=== PATIENT | male | born 1965 | race Caucasian/White ===

== ENCOUNTER 2024-10-20 02:14 | Outpatient (CLI) | payer OTHER, SELFPAY ==
--- NOTE | 2024-10-20 | DI.RAD_ITS ---
Exam(s) XR CHEST 2V PA LATERAL EXAM: XR CHEST 2V PA LATERAL CLINICAL HISTORY: DIABETES MELLITUS II E11.9 CHEST PAIN R07.9 TECHNIQUE: 2D digital imaging was performed of the chest. Images were obtained. PA and lateral v iews were obtained. COMPARISON: No exams were available for comparison FINDINGS: MEDIASTINUM: Normal. HEART: Normal. PULMONARY VASCULATURE: Normal. LUNGS: Clear. PLEURAL SPACE: No pleural effusion or pneumothorax. BONE:Within normal limits for the patient's age. OTHER FINDINGS:Normal. IMPRESSION: No acute pulmonary findings. DATA REPOSITORY: RADIATION DOSE DELIVERED:
== END 2024-10-20 02:34 ==
LOC: DI 02:14
PROVIDERS: Visit Provider Chiropractor
DX: E11.9 Type 2 diabetes mellitus without complications (principal); R07.9 Chest pain, unspecified
CPT/HCPCS: 71046

== ENCOUNTER 2024-10-20 03:21 | Outpatient (CLI) | payer OTHER, SELFPAY ==
[2024-10-20] MEDS: Inhaler, Assist Device 1 EACH MC (08:52)
[2024-10-20] MEDS: Levalbuterol HFA 15 GM INH 4 PUFF IH (08:53)
--- NOTE | 2024-10-27 16:19 | W.PFT ---
Date of service: 10/20/24 Time of Service: 08:03 Pulmonary Function Test Result Indications: Cough Interpretation Spirometry: There is moderate airflow limitation. No bronchodilator response Impression Moderate airflow obstruction. Clinical Correlation therefore is recommended.
== END 2024-10-20 03:22 | disposition home or self-care (01) ==
LOC: RT 03:21
PROVIDERS: Visit Provider Student in an Organized Health Care Education/Training Program
DX: R05.9 Cough, unspecified (principal)
CPT/HCPCS: 94060

== ENCOUNTER 2024-12-22 11:14 | Outpatient (CLI) | payer SELFPAY ==
[2024-12-22] MEDS: Inhaler, Assist Device 1 EACH MC (15:40)
[2024-12-22] MEDS: Levalbuterol HFA 15 GM INH 4 PUFF IH (15:40)
--- NOTE | 2024-12-22 16:18 | W.PFT ---
Date of service: 12/22/24 Time of Service: 10:01 Pulmonary Function Test Result Indications: Pre-op Interpretation Spirometry: There is moderate airflow limitation. There is a significant bronchodilator response. Lung Volumes: Normal lung volumes Diffusion Capacity: Reduced diffusion Airway Pressure: Normal airways resistance Impression Moderate airflow obstruction and a reduced diffusion. Clinical Correlation therefore is recommended.
== END 2024-12-22 11:15 | disposition home or self-care (01) ==
LOC: RT 11:16
PROVIDERS: Visit Provider Student in an Organized Health Care Education/Training Program
DX: R91.1 Solitary pulmonary nodule (principal)
CPT/HCPCS: 94060; 94726; 94729

== ENCOUNTER 2025-04-09 18:16 | Inpatient (IN) | payer OTHER, SELFPAY ==
[2025-04-09] VITALS (37 sets, daily range): BP systolic 136–186; BP diastolic 62–97; PULSE 57–86; RESP 0–24; TEMP 36.3; O2SAT 89–99
--- NOTE | 2025-04-09 18:22 | DI.CT_ITS ---
Exam(s) CT THORACIC LUMBAR SPINE WO EXAM: CT THORACIC LUMBAR SPINE WO CLINICAL HISTORY: trauma. TECHNIQUE: Imaging Protocol: Axial computed tomography images with coronal and sagittal reformatted images were created and reviewed. COMPARISON: CR XR CHEST 2V PA LATERAL from 10/20/2024 FINDINGS: Bones: No fractures or dislocations are seen in the thoracic spine. Schmorl's nodes are seen in the superior endplates of T7 and T8. Age-appropriate degenerative changes are seen in the thoracic and lumbar spine. The alignment of the spine is normal including the cervicothoracic junction and the tho racolumbar junction. There is an acute depressed fracture of the superior endplate of L1. There is no involvement of the posterior elements or the posterior vertebral body. There is loss of less than 20 percent of the height of the vertebral body anteriorly. Soft tissues: Emphysematous changes are present in the lungs. There is a diffuse disc bulge at L4-L5 causing moderate to severe severe narrowing of the central spinal canal. Atherosclerotic calcification is present. IMPRESSION: 1. There is no acute fracture or subluxation seen in the thoracic spine. 2. Acute fracture of the L1 vertebral body with anterior wedging and loss of less than 20 percent of the height of the vertebral body anteriorly. There is no involvement of the posterior wall of the vertebral body or the posterior elements. There is no retropulsion. 3. The preliminary [facility] report was reviewed. RADIATION DOSE DELIVERED: 1,885.65mGy.cm Total DLP DATA REPOSITORY: All CT scans at this facility are submitted to the National Radiology Data Registry (NRDR) Dose Index Registry (DIR) with the [employer] ([employer]). RADIATION OPTIMIZATION: All CT scans at this facility use at least one of these dose optimization techniques: automated exposure control; mA and/or kV adjustment per patient size (includes targeted exams where dose is matched to clinical indication); or iterative reconstruction.
[2025-04-09] MEDS: HYDROmorphone 2 MG/ML SYR IVP ×2 (18:30→19:59)
[2025-04-09] MEDS: Ondansetron 4 MG/2 ML VIAL IVP ×2 (18:30→21:03)
--- NOTE | 2025-04-09 18:43 | DI.CT_ITS ---
Exam(s) CT HEAD CERVICAL SPINE WO EXAM: CT HEAD CERVICAL SPINE WO CLINICAL HISTORY: trauma. TECHNIQUE: Imaging Protocol: Axial computed tomography images with coronal and sagittal reformatted images were created and reviewed COMPARISON: No exams were available for comparison FINDINGS: CT Head: Ventricles and Extra axial spaces: Normal in size and morphology for the patient's age. Hemorrhage: None. Cerebral parenchyma: There is no evidence of an acute territorial infarct. There is normal patterson-white matter differentiation. No acute mass effect is present. Midline shift: None. Brainstem/Cerebellum: Normal. Calvarium: Normal. Visualized Paranasal sinuses/Mastoids: Clear. Soft Tissues: Unremarkable. CT Cervical Spine: Bones: No acute fracture or subluxation. Age-appropriate degenerative changes are seen in the cervical spine. Soft Tissues: Unremarkable. Lung Apices: Emphysematous changes are seen in the lung apices. No evidence of an apical pneumothorax is present. IMPRESSION: 1. No acute intracranial process. 2. No acute fracture or subluxation in the cervical spine. 3. The preliminary [facility] report was reviewed. RADIATION DOSE DELIVERED: 1,324.53mGy.cm Total DLP DATA REPOSITORY: All CT scans at this facility are submitted to the National Radiology Data Registry (NRDR) Dose Index Registry (DIR) with the [employer] (ACR). RADIATION OPTIMIZATION: All CT scans at this facility use at least one of these dose optimization techniques: automated exposure control; mA and/or kV adjustment per patient size (includes targeted exams where dose is matched to clinical indication); or iterative reconstruction.
--- NOTE | 2025-04-09 19:50 | DI.[facility]_ITS ---
PROCEDURE INFORMATION: Exam: CT Head Without Contrast Exam date and time: 04/09/2025 6:36 PM Age: 60 years old Clinical indication: Injury or trauma; Fall; Blunt trauma (contusions or hematomas); Consciousness not specified; Injury date: 04/09/25 TECHNIQUE: Imaging protocol: Computed tomography of the head without contrast. Radiation optimization: All CT scans at this facility use at least one of these dose optimization techniques: automated exposure control; mA and/or kV adjustment per patient size (includes targeted exams where dose is matched to clinical indication); or iterative reconstruction. COMPARISON: No relevant prior studies available. FINDINGS: Brain: Normal. No hemorrhage. Unremarkable white matter. No mass effect. Cerebral ventricles: No ventriculomegaly. Paranasal sinuses: Visualized sinuses are unremarkable. No fluid levels. Mastoid air cells: Visualized mastoid air cells are well aerated. Bones: Unremarkable. No acute fracture. Soft tissues: Unremarkable. IMPRESSION: No acute intracranial abnormality. PROCEDURE INFORMATION: Exam: CT Cervical Spine Without Contrast Exam date and time: 04/09/2025 6:36 PM Age: 60 years old Clinical indication: Injury or trauma; Fall; Blunt trauma (contusions or hematomas); Consciousness not specified; Injury date: 04/09/25 TECHNIQUE: Imaging protocol: Computed tomography of the cervical spine without contrast. Radiation optimization: All CT scans at this facility use at least one of these dose optimization techniques: automated exposure control; mA and/or kV adjustment per patient size (includes targeted exams where dose is matched to clinical indication); or iterative reconstruction. COMPARISON: CR XR CHEST 2V PA LATERAL 10/20/2024 8:25 AM FINDINGS: Bones: Normal alignment of the cervical vertebral bodies and discs. No acute fracture. Mild osteoarthritic changes identified at several levels and most pronounced at C6-C7. No evidence for spondylolysis or spondylolisthesis. No central spinal stenosis or cord compression. Mild neural foraminal narrowing identified at C6-C7 secondary to uncovertebral joint and facet joint arthropathy. Lungs: Lung apices are normal. Soft tissues: Unremarkable. IMPRESSION: No acute fracture. Dictated and Authenticated by: Maxwell Teresa MD. Orderin Jamie Laughlin MD
--- NOTE | 2025-04-09 19:57 | DI.[facility]_ITS ---
PROCEDURE INFORMATION: Exam: CT Thoracic Spine Without Contrast Exam date and time: 04/09/2025 6:42 PM Age: 60 years old Clinical indication: Injury or trauma; Fall; Blunt trauma (contusions or hematomas); Injury date: 04/09/25 TECHNIQUE: Imaging protocol: Computed tomography of the thoracic spine without contrast. Radiation optimization: All CT scans at this facility use at least one of these dose optimization techniques: automated exposure control; mA and/or kV adjustment per patient size (includes targeted exams where dose is matched to clinical indication); or iterative reconstruction. COMPARISON: CT HEAD CERVICAL SPINE WO 04/09/2025 6:36 PM FINDINGS: Bones/joints: Schmorl's node defects involving the superior endplate of T7 and T8 appear chronic and there is gross preservation of vertebral body height throughout the remainder of the thoracic spine with no acute vertebral body fractures or significant subluxations detected. Posterior elements appear intact throughout thoracic levels. T1-T2: No significant disc bulge or protrusion. No severe spinal canal stenosis. No significant neural foraminal narrowing. T2-T3: No significant disc bulge or protrusion. No severe spinal canal stenosis. No significant neural foraminal narrowing. T3-T4: No significant disc bulge or protrusion. No severe spinal canal stenosis. No significant neural foraminal narrowing. T4-T5: No significant disc bulge or protrusion. No severe spinal canal stenosis. No significant neural foraminal narrowing. T5-T6: No significant disc bulge or protrusion. No severe spinal canal stenosis. No significant neural foraminal narrowing. T6-T7: Small posterior central disc protrusion results in focal indentation of the ventral thecal sac without canal stenosis or mass effect upon the cord. T7-T8: Small posterior central disc protrusion results in focal indentation of the ventral thecal sac without canal stenosis or mass effect upon the cord. T8-T9: No significant disc bulge or protrusion. No severe spinal canal stenosis. No significant neural foraminal narrowing. T9-T10: No significant disc bulge or protrusion. No severe spinal canal stenosis. No significant neural foraminal narrowing. T10-T11: No significant disc bulge or protrusion. No severe spinal canal stenosis. No significant neural foraminal narrowing. T11-T12: No significant disc bulge or protrusion. No severe spinal canal stenosis. No significant neural foraminal narrowing. T12-L1: No significant disc bulge or protrusion. No severe spinal canal stenosis. No significant neural foraminal narrowing. Soft tissues: Unremarkable. IMPRESSION: 1. Schmorl's node defects involving the superior endplate of T7 and T8 appear chronic and there is gross preservation of vertebral body height throughout the remainder of the thoracic spine with no acute vertebral body fractures or significant subluxations detected. Posterior elements appear intact throughout thoracic levels. 2. Small posterior central disc protrusions at T6-7 and T7-8 result in focal indentation of the ventral thecal sac without canal stenosis or mass effect upon the cord. No significant disc bulges or protrusions detected at remaining thoracic levels. PROCEDURE INFORMATION: Exam: CT Lumbar Spine Without Contrast Exam date and time: 04/09/2025 6:42 PM Age: 60 years old Clinical indication: Injury or trauma; Fall; Blunt trauma (contusions or hematomas); Injury date: 04/09/25 TECHNIQUE: Imaging protocol: Computed tomography of the lumbar spine without contrast. Radiation optimization: All CT scans at this facility use at least one of these dose optimization techniques: automated exposure control; mA and/or kV adjustment per patient size (includes targeted exams where dose is matched to clinical indication); or iterative reconstruction. COMPARISON: No relevant prior studies available. FINDINGS: Bones/joints: Compression fracture deformity involving the body of L1 with concavity and collapse of the superior endplate and anterior wedging is seen associated with osseous fragmentation along the anterior margin of the superior endplate consistent with recent fracture. No associated retropulsed fragments or canal stenosis detected. There is preservation of vertebral body height throughout the remainder of the lumbar spine with no other acute lumbar fractures detected. L1-L2: No significant disc bulge or protrusion. No severe spinal canal stenosis. No significant neural foraminal narrowing. L2-L3: No significant disc bulge or protrusion. No severe spinal canal stenosis. No significant neural foraminal narrowing. L3-L4: Broad-based posterior disc bulging indents the ventral thecal sac without significant central canal stenosis. L4-L5: Posterior disc extrusion with inferior prolapse indents the ventral thecal sac and produces severe canal stenosis, AP canal dimension approximately 7 mm. L5-S1: Mild posterior disc bulging without focal protrusion. No severe spinal canal stenosis. No significant neural foraminal narrowing. Soft tissues: Unremarkable. IMPRESSION: 1. Compression fracture deformity involving the body of L1 with concavity and collapse of the superior endplate and anterior wedging is seen associated with osseous fragmentation along the anterior margin of the superior endplate consistent with recent fracture. No associated retropulsed fragments or canal stenosis detected. There is preservation of vertebral body height throughout the remainder of the lumbar spine with no other acute lumbar fractures detected. 2. Posterior disc extrusion with inferior prolapse at L4-L5 indents the ventral thecal sac and produces severe canal stenosis, AP canal dimension approximately 7 mm. Central canal is adequate at remaining lumbar levels. Dictated and Authenticated by: Akshat Mejias MD. Orderin Jamie Laughlin MD
[2025-04-09 20:32] LABS: Abs Immature Grans 0.06 10^3/uL (0.0-0.06); HCT 39.7 % (40.0-50.0); HGB 13.5 g/dL (13.5-17.5); Immature Grans % 0.7 %; MCH 33.3 pg (27.0-33.0); MCHC 34.0 % (32.0-36.0); MCV 98 fL (80-95); MPV 10.0 fL (8.0-11.0); Platelet Count 197 10^3/uL (130-400); RBC 4.05 10^6/uL (4.36-5.78); RDW 14.0 % (11.8-14.1); RDW-SD 51.2 fL; WBC 8.89 10^3/uL (4.4-10.8)
[2025-04-09 20:48] LABS: ALT 15 U/L (16-63); AST 17 U/L (15-37); Albumin 3.3 g/dL (3.4-5.0); Alkaline Phosphatase 111 U/L (46-116); Anion Gap 9.6 mmol/L (3-11); BUN 10 mg/dL (7-18); Bilirubin, Total 0.6 mg/dL (0.2-1.0); CO2 24.4 mmol/L (21.0-32.0); Calcium 8.3 mg/dL (8.5-10.1); Chloride 104 mmol/L (98-107); Estimated GFR 99.00 (mL/min/1.73m2); Glucose 205 mg/dL (74-106); Lipase 12 U/L (<78); Potassium 4.0 mmol/L (3.5-5.1); Sodium 138 mmol/L (136-145); Total Protein 6.9 g/dL (6.4-8.2)
[2025-04-09] MEDS: ACETAMINOPHEN 1,000 MG/100 ML BAG 400 MG IVPB (21:03)
[2025-04-09] MEDS: Gabapentin 300 MG CAP 900 MG PO (21:03)
--- NOTE | 2025-04-09 21:29 | W.PM.HP.N ---
Date of service: 04/09/25 Time of Service: 21:29 Assessment and Plan Assessment and plan (1) Closed compression fracture of L1 vertebra: Start date: 04/09/25 Status: Acute Assessment and plan: This is a 60-year-old gentleman with a acute compression fracture of the L1 vertebrae with fall at home. There are no signs of neurological deficits and patient will have repeat imaging of his LS spine standing as per request of neurosurgery from [facility] consulted while the patient was in the ED. They state that the patient did not require any acute interventions and he should be treated for pain with rehabilitation. The patient was admitted for follow-up imaging and rehabilitation to enable him to return home. He is a full code. 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 He has been off muscle his meds recently. This also may have been exacerbated by his fall. PT and OT have been ordered. Follow-up imaging as per neurosurgery with patient standing for weightbearing image to assess for instability. (3) Type 2 diabetes mellitus: Status: Chronic Assessment and plan: Hold outpatient medical therapy and do glucometers before meals and at bedtime with moderate sliding scale coverage. (4) GERD (gastroesophageal reflux disease): Status: Chronic Assessment and plan: Continue PPI as ordered as an outpatient with question patient be compliant as an outpatient. He is a smoker which may increase risk of reflux. (5) Depression: Status: Chronic Assessment and plan: Continue outpatient medical therapy though there is a question patient being compliant as an outpatient. (6) Hyperlipidemia: Status: Chronic Assessment and plan: Continue outpatient therapy as previously ordered though once again compliance may be an issue. History of Present Illness History of Present Illness Chief Complaint: Fall on stairs injuring back while carrying stove. Narrative: This is a 60-year-old male patient who is caring a heavy stove on some stairs when he fell very hard directly on his buttocks injuring his lower back. He does have chronic low back pain with known degenerative disc disease for which she was taking Neurontin in the past. He also is a diabetic and states he is fairly well-controlled. He does take antidepressants but has been off his meds recently and also PPI for gastroenteritis which she has not been taking recently. His hyperlipidemia was on treatment but he had been off meds for this as well. He does smoke tobacco. He presented to the ED because of his severe acute onset of pain and imaging did reveal compression fracture of the L1 vertebra with degenerative disc disease of the lower lumbar spine at L4-L5. Review of Systems Narrative: 13 point review of systems otherwise unrevealing or stable. Patient is not incontinent and does not have any loss of function of his lower extremities. PFSH All Active Problems (Updated 04/09/25 @ 23:17 by Beryl Ayala MD) Hyperlipidemia (Chronic) Depression (Chronic) GERD (gastroesophageal reflux disease) (Chronic) Type 2 diabetes mellitus (Chronic) Closed compression fracture of L1 vertebra (Acute) Spondylosis of lumbar region without myelopathy or radiculopathy (Chronic) Social History Smoking/Tobacco Use Status: Current every day Smoking risk assessment performed?: Yes Alcohol Intake: never Drug use: Never Substance use type: does not use Housing: house Do you feel safe at home: Yes Do you feel safe in your relationship?: Yes Meds Allergies and Home Medications Allergies Allergy/AdvReac Type Severity Reaction Status Date / Time codeine Allergy Mild Rash Unverified 04/09/25 18:22 empagliflozin (From Allergy Mild Skin Rash Verified 04/09/25 18:22 Jardiance) Home Medications ?Medication ?Instructions ?Recorded ?Confirmed ?Type insulin glargine 100 unit/mL (3 60 unit SQ HS 12/15/12 04/09/25 History mL) subcutaneous pen (Lantus Solostar U-100 Insulin) albuterol sulfate 90 mcg/actuation 1 puff inhalation Q4H PRN 12/24/16 04/09/25 History aerosol inhaler (ProAir HFA) gabapentin 600 mg tablet 4 tab PO HS 12/24/16 04/09/25 History nicotine 21 mg/24 hr daily 21 mg transdermal DAILY 12/24/16 04/09/25 History transdermal patch (Nicoderm CQ) omeprazole 20 mg capsule,delayed 20 mg PO DAILY 12/24/16 04/09/25 History release sertraline 100 mg tablet (Zoloft) 100 mg PO DAILY 12/24/16 04/09/25 History simvastatin 10 mg tablet 10 mg PO HS 12/24/16 04/09/25 History trazodone 50 mg tablet 50 mg PO HS 12/24/16 04/09/25 History Exam Narrative Exam Narrative: General: Patient appears older than stated age, alert and oriented x 3 and in moderate to severe distress with his back pain. He is lying very still in bed. He has a flattened affect with poor eye contact. HEENT: Normocephalic, coarsened facial features, eyes with pupils equal and reactive light symmetrically, extraocular movement intact and sclera anicteric. Oropharynx with dry mucosa and fair dentition. Neck: Slight decreased range of motion, supple with no JVD. Back: Patient is not able to sit up because of pain. He has decreased range of motion of his entire spine with muscle spasm. Straight leg test was not performed. Lungs: Bronchovesicular breath sound diffusely with no focalizing rales or rhonchi. Fair aeration. No expiratory wheeze. Heart: Regular rate and rhythm with no murmurs gallops appreciated. Abdomen: Scaphoid contour, soft and nontender to palpation with no palpable hepatosplenomegaly. Bowel sounds positive in all quadrants. No focal guarding or rebound. Genitalia/rectal: Exam deferred. Skin: Darkly tanned with rough texture, otherwise normal color, warm and dry. Extremities: Without clubbing, cyanosis or pitting edema. Patient is hesitant to move because of his back pain. Fair capillary refill. Neuro: Cranial nerves II through XII appear to be grossly intact. Straight leg test was not performed because of patient discomfort lying in bed flat. No focal motor deficits. No tremor. DTRs appear physiologic and symmetrical. Psych: Flattened affect and depressed mood with the patient in pain. No abnormal thought processes. Remote and recent memory intact. Results Imaging Imaging Studies: EXAM: CT THORACIC LUMBAR SPINE WO Date of exam: 04/09/2025 CLINICAL HISTORY: trauma. TECHNIQUE: Imaging Protocol: Axial computed tomography images with coronal and sagittal reformatted images were created and reviewed. COMPARISON: CR XR CHEST 2V PA LATERAL from 10/20/2024 FINDINGS: Bones: No fractures or dislocations are seen in the thoracic spine. Schmorl's nodes are seen in the superior endplates of T7 and T8. Age-appropriate degenerative changes are seen in the thoracic and lumbar spine. The alignment of the spine is normal including the cervicothoracic junction and the thoracolumbar junction. There is an acute depressed fracture of the superior endplate of L1. There is no involvement of the posterior elements or the posterior vertebral body. There is loss of less than 20 percent of the height of the vertebral body anteriorly. Soft tissues: Emphysematous changes are present in the lungs. There is a diffuse disc bulge at L4-L5 causing moderate to severe severe narrowing of the central spinal canal. Atherosclerotic calcification is present. IMPRESSION: 1. There is no acute fracture or subluxation seen in the thoracic spine. 2. Acute fracture of the L1 vertebral body with anterior wedging and loss of less than 20 percent of the height of the vertebral body anteriorly. There is no involvement of the posterior wall of the vertebral body or the posterior elements. There is no retropulsion. 3. The preliminary [facility] report was reviewed. EXAM: CT HEAD CERVICAL SPINE WO CLINICAL HISTORY: trauma. TECHNIQUE: Imaging Protocol: Axial computed tomography images with coronal and sagittal reformatted images were created and reviewed COMPARISON: No exams were available for comparison FINDINGS: CT Head: Ventricles and Extra axial spaces: Normal in size and morphology for the patient's age. Hemorrhage: None. Cerebral parenchyma: There is no evidence of an acute territorial infarct. There is normal patterson-white matter differentiation. No acute mass effect is present. Midline shift: None. Brainstem/Cerebellum: Normal. Calvarium: Normal. Visualized Paranasal sinuses/Mastoids: Clear. Soft Tissues: Unremarkable. CT Cervical Spine: Bones: No acute fracture or subluxation. Age-appropriate degenerative changes are seen in the cervical spine. Soft Tissues: Unremarkable. Lung Apices: Emphysematous changes are seen in the lung apices. No evidence of an apical pneumothorax is present. IMPRESSION: 1. No acute intracranial process. 2. No acute fracture or subluxation in the cervical spine. 3. The preliminary [facility] report was reviewed. Labs 04/10/25 06:07 04/10/25 06:07 Labs: Laboratory Results - last 24 hr 04/09/25 20:25 WBC 8.89 RBC 4.05 L Hgb 13.5 Hct 39.7 L MCV 98 H MCH 33.3 H MCHC 34.0 RDW 14.0 Plt Count 197 MPV 10.0 Immature Gran % 0.7 Neutrophils % 58.6 Lymphocytes % 31.8 Monocytes % 7.3 Eosinophils % 0.9 Basophils % 0.7 Nucleated RBC % 0.0 Absolute Neutrophils 5.21 Absolute Lymphocytes 2.83 Absolute Monocytes 0.65 Absolute Eosinophils 0.08 Absolute Basophils 0.06 Sodium 138 Potassium 4.0 Chloride 104 Carbon Dioxide 24.4 Anion Gap 9.6 BUN 10 Creatinine 0.9 Est GFR (CKD-EPI 2020) 99.00 Glucose 205 H Calcium 8.3 L Total Bilirubin 0.6 AST 17 ALT 15 L Alkaline Phosphatase 111 Total Protein 6.9 Albumin 3.3 L Lipase 12 Last Vital Signs Temp 36.3 C L 04/09/25 18:17 Pulse 69 04/09/25 19:30 Resp 19 04/09/25 19:30 BP 174/62 H 04/09/25 19:30 Pulse Ox 91 L 04/09/25 19:30 Time Spent Time spent with Patient: >75 minutes Time was spent: preparing to see the patient(eg.review tests), obtaining and/or reviewing separately otained hiistory, ordering medications,tests, procedures, referring, communicating with other health child care, indepentently interpreting results, counseling the patient and care coordination
[2025-04-09 21:33] LABS: INR 1.0 (0.9-1.1); Prothrombin Time 10.3 sec (9.1-11.1)
[2025-04-09 21:40] LABS: PTT Activated 26.5 sec (20.6-30.2)
--- NOTE | 2025-04-09 22:47 | W.PC.ACHO ---
Registration Status: REG ER Primary Language: Preferred Language: Swedish ED Information & Data Chief Complaint Trauma 04/09/25 18:25 Chief Complaint Trauma 04/09/25 18:17 Triage Note Pt arrives via EMS s/p fall 04/09/25 18:17 down 4 steps while walking up the stairs carrying a stove. Pain in mid thoracic/ lumbar region. Pt hit his back against the railing on the stairs. Denies hitting his head, pt denies neck pain. 200 mcg of Fentanyl + 1g of Tylenol given by EMS 18G RT AC started by EMS BGL = 275 by EMS Most Recent Vital Signs Temperature 36.3 C L 04/09/25 18:17 Temperature Source Oral 04/09/25 18:17 Pulse 62 04/09/25 22:30 Pulse 63 04/09/25 22:30 Respiratory Rate 10 L 04/09/25 22:30 Blood Pressure 155/65 H 04/09/25 22:30 Blood Pressure Mean 94 04/09/25 22:30 Blood Pressure Position Sitting 04/09/25 18:17 Pulse Oximetry 97 04/09/25 22:30 Oxygen Delivery Method Room Air 04/09/25 18:17 Oxygen Flow Rate 0 04/09/25 18:17 Pain Level 6 04/09/25 18:36 Allergies codeine Allergy (Mild, Unverified 04/09/25 18:22) Rash empagliflozin (From Jardiance) Allergy (Mild, Verified 04/09/25 18:22) Skin Rash Precautions Isolation Standard precaution 04/09/25 18:25 IV IV Catheter Type [Left Saline Lock Antecubital] IV Catheter Gauge [Left 18 Antecubital] Diagnostics 04/09/25 Range/Units 20:25 WBC 8.89 (4.4-10.8) 10^3/uL RBC 4.05 L (4.36-5.78) 10^6/uL Hgb 13.5 (13.5-17.5) g/dL Hct 39.7 L (40.0-50.0) % MCV 98 H (80-95) fL MCH 33.3 H (27.0-33.0) pg MCHC 34.0 (32.0-36.0) % RDW 14.0 (11.8-14.1) % Plt Count 197 (130-400) 10^3/uL MPV 10.0 (8.0-11.0) fL Immature Gran % 0.7 % Neutrophils % 58.6 % Lymphocytes % 31.8 % Monocytes % 7.3 % Eosinophils % 0.9 % Basophils % 0.7 % Nucleated RBC % 0.0 (0.0-0.3) % Absolute Neutrophils 5.21 (1.2-6.7) 10^3/uL Absolute Lymphocytes 2.83 (1.2-3.4) 10^3/uL Absolute Monocytes 0.65 (0.1-0.8) 10^3/uL Absolute Eosinophils 0.08 (0.0-0.7) 10^3/uL Absolute Basophils 0.06 (0.0-0.2) 10^3/uL PT 10.3 (9.1-11.1) sec INR 1.0 (0.9-1.1) APTT 26.5 (20.6-30.2) sec Sodium 138 (136-145) mmol/L Potassium 4.0 (3.5-5.1) mmol/L Chloride 104 (98-107) mmol/L Carbon Dioxide 24.4 (21.0-32.0) mmol/L Anion Gap 9.6 (3-11) mmol/L BUN 10 (7-18) mg/dL Creatinine 0.9 (0.70-1.30) mg/dL Est GFR (CKD-EPI 2020) 99.00 (mL/min/1.73m2) Glucose 205 H (74-106) mg/dL Calcium 8.3 L (8.5-10.1) mg/dL Total Bilirubin 0.6 (0.2-1.0) mg/dL AST 17 (15-37) U/L ALT 15 L (16-63) U/L Alkaline Phosphatase 111 (46-116) U/L Total Protein 6.9 (6.4-8.2) g/dL Albumin 3.3 L (3.4-5.0) g/dL Lipase 12 (<78) U/L Intake and Output - 24 Hour Total 04/09/25 18:09 thru 04/09/25 21:35 Intake Total 110 Balance 110 Weight 74.843 kg Intake: IV 110 Falls Risk Assessment History of Falls Admit Due to Fall 04/09/25 18:27 Contributing Factors No Factors 04/09/25 18:27 Ambulatory Aids Independent 04/09/25 18:27 Tubes/Lines W/no contributing factors 04/09/25 18:27 Gait Evaluation No gait disturbance 04/09/25 18:27 Cognition No cognitive impairment 04/09/25 18:27 Fall Total Score 35 04/09/25 18:27 Level of Risk Moderate Risk 04/09/25 18:27 Problems (Last Reviewed 04/09/25 @ 21:29 by Boo Tolbert) Hyperlipidemia (Chronic) Depression (Chronic) GERD (gastroesophageal reflux disease) (Chronic) Type 2 diabetes mellitus (Chronic) Closed compression fracture of L1 vertebra (Acute) Spondylosis of lumbar region without myelopathy or radiculopathy (Chronic) v v v v v v v v v Sending and/or Receiving Nurses: Please use comment section below to note any information pertinent to the patient hand-off not included above. Information / Comments:Pt admit to med surg rm 209, from ED. CT showed-Multiple compression Fx to Lumbar spine, pt fell at home while moving a stove up stairs. No neck Fx. Pt controlled pain by EMS fentynal 200 mcg. Dilaudid, Gabapentin and 1g Tylenol given in ED. Pt has 18 IV access in lft AC, valvey, on 1 L o2, d/t low resp. rate from narcotics. Pt voiding in urinal , A&Ox4, received zofran in ED also. Report received from:Maryam CASTILLO RN, called @ 2048, 04/09/25
--- NOTE | 2025-04-09 22:58 | W.ED.GENAD ---
Discharge Plan Disposition Patient Disposition: Admit to [facility] Condition: Stable Discharge Details Clinical Impression: Closed compression fracture of L1 vertebra Admit Date/Time: 04/09/25 21:37 Admit Provider: Boo Tolbert Attending Provider: Boo Tolbert Primary Care Provider: [place], [place] ED Provider: Beryl Ayala General Date/Time Provider Initiated Documentation: 04/09/25 18:22. Limitations to Documentation: no limitations. Information obtained by: patient and EMS. HPI Narrative: 60-year-old gentleman with past medical history of insulin-dependent diabetes presents for evaluation of acute onset back pain. Just prior to arrival the patient was carrying a large heavy stove down the stairs when he tripped and fell. He fell down about 4 stairs and then landed with his back against the stair railing. He did not hit his head or lose consciousness. He has not been able to walk since this fall secondary to pain in his back. He localizes pain to the mid lower back describes his pain as severe, nonradiating. He does not have any numbness, tingling. There has not been any bowel or bladder incontinence. Related Data Home Medications ?Medication ?Instructions ?Recorded ?Confirmed insulin glargine 100 unit/mL (3 60 unit SQ HS 12/15/12 04/09/25 mL) subcutaneous pen (Lantus Solostar U-100 Insulin) albuterol sulfate 90 mcg/actuation 1 puff inhalation Q4H PRN 12/24/16 04/09/25 aerosol inhaler (ProAir HFA) gabapentin 600 mg tablet 4 tab PO HS 12/24/16 04/09/25 nicotine 21 mg/24 hr daily 21 mg transdermal DAILY 12/24/16 04/09/25 transdermal patch (Nicoderm CQ) omeprazole 20 mg capsule,delayed 20 mg PO DAILY 12/24/16 04/09/25 release sertraline 100 mg tablet (Zoloft) 100 mg PO DAILY 12/24/16 04/09/25 simvastatin 10 mg tablet 10 mg PO HS 12/24/16 04/09/25 trazodone 50 mg tablet 50 mg PO HS 12/24/16 04/09/25 Allergies Allergy/AdvReac Type Severity Reaction Status Date / Time codeine Allergy Mild Rash Unverified 04/09/25 18:22 empagliflozin (From Allergy Mild Skin Rash Verified 04/09/25 18:22 Jardiance) General Stated Complaint: Trauma BRENDA: 3 Exam Narrative Exam Narrative: Review of Systems: All systems reviewed & are unremarkable except as noted in HPI and below Well-developed, appears acutely distressed NCAT No C-spine tenderness PERRL, normal conjunctiva RRR no murmur Unlabored respiratory effort clear bilaterally Nondistended abdomen soft nontender Pelvis stable Extremities w/o deformity no focal neurologic deficits, sensation intact, strength intact No thoracic spine tenderness step-off or deformity Significant lumbar tenderness without deformity appreciated Appropriate mood and affect Course Vital Signs Vital signs: Vital Signs Temperature 36.3 C L 04/09/25 18:17 Pulse 75 04/09/25 18:17 Respiratory Rate 20 04/09/25 18:17 Blood Pressure 186/97 H 04/09/25 18:17 Pulse Oximetry 99 04/09/25 18:17 Temperature 36.3 C L 04/09/25 18:17 Temperature Source Oral 04/09/25 18:17 Pulse 62 04/09/25 22:30 Pulse 63 04/09/25 22:30 Respiratory Rate 10 L 04/09/25 22:30 Blood Pressure 155/65 H 04/09/25 22:30 Blood Pressure Mean 94 04/09/25 22:30 Blood Pressure Position Sitting 04/09/25 18:17 Pulse Oximetry 97 04/09/25 22:30 Oxygen Delivery Method Room Air 04/09/25 18:17 Oxygen Flow Rate 0 04/09/25 18:17 Pain Level 6 04/09/25 18:36 Lab/Test Results Lab/Test Results: Laboratory Tests Range/Units 04/09/25 20:25 WBC (4.4-10.8) 10^3/uL 8.89 RBC (4.36-5.78) 10^6/uL 4.05 L Hgb (13.5-17.5) g/dL 13.5 Hct (40.0-50.0) % 39.7 L MCV (80-95) fL 98 H MCH (27.0-33.0) pg 33.3 H MCHC (32.0-36.0) % 34.0 RDW (11.8-14.1) % 14.0 Plt Count (130-400) 10^3/uL 197 MPV (8.0-11.0) fL 10.0 Immature Gran % % 0.7 Neutrophils % % 58.6 Lymphocytes % % 31.8 Monocytes % % 7.3 Eosinophils % % 0.9 Basophils % % 0.7 Nucleated RBC % (0.0-0.3) % 0.0 Absolute Neutrophils (1.2-6.7) 10^3/uL 5.21 Absolute Lymphocytes (1.2-3.4) 10^3/uL 2.83 Absolute Monocytes (0.1-0.8) 10^3/uL 0.65 Absolute Eosinophils (0.0-0.7) 10^3/uL 0.08 Absolute Basophils (0.0-0.2) 10^3/uL 0.06 PT (9.1-11.1) sec 10.3 INR (0.9-1.1) 1.0 APTT (20.6-30.2) sec 26.5 Sodium (136-145) mmol/L 138 Potassium (3.5-5.1) mmol/L 4.0 Chloride (98-107) mmol/L 104 Carbon Dioxide (21.0-32.0) mmol/L 24.4 Anion Gap (3-11) mmol/L 9.6 BUN (7-18) mg/dL 10 Creatinine (0.70-1.30) mg/dL 0.9 Est GFR (CKD-EPI 2020) (mL/min/1.73m2) 99.00 Glucose (74-106) mg/dL 205 H Calcium (8.5-10.1) mg/dL 8.3 L Total Bilirubin (0.2-1.0) mg/dL 0.6 AST (15-37) U/L 17 ALT (16-63) U/L 15 L Alkaline Phosphatase (46-116) U/L 111 Total Protein (6.4-8.2) g/dL 6.9 Albumin (3.4-5.0) g/dL 3.3 L Lipase (<78) U/L 12 Medical Decision Making Emergent evaluation of acute traumatic injury. Initial differential includes contusion, fracture, no evidence of acute spinal cord injury or neurologic damage on examination. Patient has received 200 mcg of fentanyl prior to arrival by EMS. Will continue pain control as he appears to be in fairly significant pain. Patient was sent emergently for CT radiographs of head and entire spine. The radiograph [facility] reports were reviewed and there is concern for an acute L1 compression fracture. There is also L4-L5 disc herniation. I discussed these findings and the radiographs were reviewed with neurosurgery team at [facility]. They do not feel that the patient needs emergent transfer. They do recommend a standing lumbar x-ray when the patient is able to evaluate for disc height. They stated that they would be able to review these x-rays if requested. They recommend continued pain control, TLSO brace as needed for comfort, not necessary but only if it makes the patient feel better, the recommended outpatient osteoporosis workup as the patient's bone density seems concerning for that. They state they will follow-up the patient in their clinic in 6 to 8 weeks. Given the patient's severity of pain in his knee for frequent high doses of narcotics, I will admit the patient for pain control and PT OT evaluation in the morning. Discussed with the hospitalist who accepts the patient for admission. PFSH All Active Problems (Updated 04/09/25 @ 23:17 by Beryl Ayala MD) Hyperlipidemia (Chronic) Depression (Chronic) GERD (gastroesophageal reflux disease) (Chronic) Type 2 diabetes mellitus (Chronic) Closed compression fracture of L1 vertebra (Acute) Spondylosis of lumbar region without myelopathy or radiculopathy (Chronic) Social History Smoking/Tobacco Use Status: Current every day Smoking risk assessment performed?: Yes Alcohol Intake: never Drug use: Never Substance use type: does not use Do you feel safe at home: Yes Do you feel safe in your relationship?: Yes
[2025-04-10 00:15] LABS: Glucose 250 mg/dL (Negative)
[2025-04-10 06:57] LABS: HCT 42.5 % (40.0-50.0); HGB 14.0 g/dL (13.5-17.5); MCH 32.7 pg (27.0-33.0); MCHC 32.9 % (32.0-36.0); MCV 99 fL (80-95); MPV 10.1 fL (8.0-11.0); Platelet Count 192 10^3/uL (130-400); RBC 4.28 10^6/uL (4.36-5.78); RDW 14.2 % (11.8-14.1); RDW-SD 52.2 fL; WBC 8.29 10^3/uL (4.4-10.8)
[2025-04-10 07:21] LABS: ALT 13 U/L (16-63); AST 15 U/L (15-37); Albumin 3.2 g/dL (3.4-5.0); Alkaline Phosphatase 99 U/L (46-116); Anion Gap 8.4 mmol/L (3-11); BUN 8 mg/dL (7-18); Bilirubin, Total 0.8 mg/dL (0.2-1.0); CO2 27.6 mmol/L (21.0-32.0); Calcium 8.6 mg/dL (8.5-10.1); Chloride 104 mmol/L (98-107); Estimated GFR 106.80 (mL/min/1.73m2); Glucose 82 mg/dL (74-106); Magnesium 1.8 mg/dL (1.8-2.4); Potassium 3.8 mmol/L (3.5-5.1); Sodium 140 mmol/L (136-145); Total Protein 6.8 g/dL (6.4-8.2)
[2025-04-10 07:41] VITALS: BP 126/67; PULSE 82; RESP 16; TEMP 35.8; O2SAT 98
[2025-04-10] MEDS: Omeprazole 20 MG CAPCR PO (07:55)
[2025-04-10] MEDS: HYDROmorphone 2 MG/ML SYR IVP (07:55)
[2025-04-10] MEDS: Enoxaparin 40 MG/0.4 ML SYR SC (07:55)
--- NOTE | 2025-04-10 08:16 | DI.RAD_ITS ---
Exam(s) XR LUMBAR SPINE AP, LAT EXAM: XR LUMBAR SPINE AP, LAT CLINICAL HISTORY: Acute L1 compression fracture, traumatic. TECHNIQUE: 2D digital imaging was performed of the lumbar spine. Three images were obtained. AP, lateral and L5-S1 spot views were obtained. COMPARISON: CT CT THORACIC LUMBAR SPINE WO from 04/09/2025 FINDINGS: BONES: There is again seen a compression fracture of the superior endplate of L1. There is less than 20 percent of the loss of the height of the vertebral body anteriorly. Compared to the CT scan from the day prior, there has been no significant change. No new fractures are appreciated. Age-appropriate degenerative changes are seen in the lumbar spine. DISKS: Intervertebral disc spaces are maintained. ALIGNMENT: Lumbar spinal alignment is within normal limits. No spondylolysis or spondylolisthesis. SOFT TISSUE: Atherosclerotic calcification is present. IMPRESSION: Stable appearance of the L1 compression fracture. DATA REPOSITORY: RADIATION DOSE DELIVERED:
--- NOTE | 2025-04-10 08:42 | PT.INIE ---
Date of service: 04/10/25 PT Notes Visit Reasons: Acute compression fracture of L1 Inpatient Physical Therapy Evaluation Date: April 10, 2025 Referring Doctor: Dr. Boo Tolbert PT Orders: PT CONSULT: D/C non PT dependent Precautions: L1 compression fracture Patient Profile/Admitting Diagnosis: 60-year-old gentleman with past medical history of insulin-dependent diabetes presents for evaluation of acute onset back pain. Just prior to arrival the patient was carrying a large heavy stove down the stairs when he tripped and fell. He fell down about 4 stairs and then landed with his back against the stair railing. He did not hit his head or lose consciousness. He has not been able to walk since this fall secondary to pain in his back. He localizes pain to the mid lower back describes his pain as severe, nonradiating. He does not have any numbness, tingling. There has not been any bowel or bladder incontinence. PMHX: PFSH All Active Problems (Updated 04/09/25 @ 21:42 by Boo Tolbert) Hyperlipidemia (Chronic) Depression (Chronic) GERD (gastroesophageal reflux disease) (Chronic) Type 2 diabetes mellitus (Chronic) Closed compression fracture of L1 vertebra (Acute) Spondylosis of lumbar region without myelopathy or radiculopathy (Chronic) Social History/Home Situation: Unemployed. Lives in [place] with his fianc?e in a single level dwelling with 2 steps and railing upon entry. Current Functional Limitations: Unable to perform any bed mobility sit to stand or ambulation secondary to severe pain rated 10/10 Equipment Owned/DME: None Medications: Home Medications ?Medication ?Instructions ?Recorded ?Confirmed insulin glargine 100 unit/mL (3 60 unit SQ HS 12/15/12 04/09/25 mL) subcutaneous pen (Lantus Solostar U-100 Insulin) albuterol sulfate 90 mcg/actuation 1 puff inhalation Q4H PRN 12/24/16 04/09/25 aerosol inhaler (ProAir HFA) gabapentin 600 mg tablet 4 tab PO HS 12/24/16 04/09/25 nicotine 21 mg/24 hr daily 21 mg transdermal DAILY 12/24/16 04/09/25 transdermal patch (Nicoderm CQ) omeprazole 20 mg capsule,delayed 20 mg PO DAILY 12/24/16 04/09/25 release sertraline 100 mg tablet (Zoloft) 100 mg PO DAILY 12/24/16 04/09/25 simvastatin 10 mg tablet 10 mg PO HS 12/24/16 04/09/25 trazodone 50 mg tablet 50 mg PO HS 12/24/16 04/09/25 Subjective: Patient states they attempted to get him to stand for a weightbearing x-ray but he could not tolerate that secondary to severe pain rated 10/10 on VAS. Was given some Dilaudid prior to this attempt for x-ray which she states did help mildly with the pain but did not help him tolerate his mobility at all and could not undergo the x-ray at this time. Objective: General Observation: Lying in bed with head of bed 30 degrees. IV via left antecubital fossa Mental Status: Alert and oriented x 3 Pain: 10/10 localized to central low back. Denies any radicular symptoms. Vital Signs: Monitored via nursing ROM: Right Upper Extremity: WFL all planes Left Upper Extremity: WFL all planes Right Lower Extremity: WFL all planes Left Lower Extremity: WFL all planes Strength: Right Upper Extremity: 4+/5 throughout Left Upper Extremity: 4+/5 throughout Right Lower Extremity: 4+/5 knee flexion, knee extension, ankle dorsiflexion, great toe extension. Patient perform straight leg raise with 0 degree lag Left Lower Extremity: 4+/5 knee flexion, knee extension, ankle dorsiflexion, great toe extension. Patient perform straight leg raise with 0 degree lag Sensation: Intact sensation light touch bilateral upper and lower extremities. Myotomes congruent bilateral lower extremities. Bed Mobility/Transfers: Deferred secondary to pain Gait: Deferred secondary to pain Balance: Not tested Static Sitting: [] Dynamic Sitting: [] Static Standing: [] Dynamic Standing: [] Special Tests: Mobility Limitations Standardized Measure [facility] AM-PAC 6 clicks Basic Mobility Inpatient Short Form: Raw Score: 7 Standardized Score: [] CMS Score: 92% Informed Consent/Education: Patient instructed in purpose of PT consult and plan of care. Patient educated in bedside active range of motion ankle pumps, heel slides, quad sets, straight leg raise to tolerance. Discussed technique for logrolling. Discussed TLSO but this will be contingent on patient being able to maintain sit/stand position for fitting purposes. Assessment: Patient is a 60 year old male referred to physical therapy services with the diagnosis of L1 compression fracture. Patient presents with clinical signs and symptoms consistent with above diagnosis, as demonstrated by the following impairment level findings: joint mobility, motor function, muscle performance and range of motion associated with, bony fracture L1. Pain biggest limiting factor at this time. Patient may benefit from TLSO for stability purposes and helps to allow for improved tolerance to functional mobility, transfers and ambulation. Look to get him fitted for 1 later today as long as pain is manageable. Significant pain behaviors with even attempts at bed mobility log rolling. Impairments are contributing to the following functional limitations: AMPA score. Patient presents with clinical signs and symptoms consistent with current/admitting diagnoses that have resulted to mobility limitations, gait instability, generalized weakness, and overall ADL decline as demonstrated by the following impairment level findings: 1. Impaired sitting/standing tolerance 2. Impaired activity tolerance Impairments are contributing to the following functional limitations: 1. Decline in bed mobility skills 2. Decline in transfer skills 3. Difficulty with ambulation without assistive device and physical assistance 4. Increased completion time for mobility ADL performance Patient is assessed as a 05576 complexity based on the following: History:60-year-old male with past medical history as indicated above Examination: Demonstrable impairment in strength, balance, and mobility level with underlying impairments and functional limitations as exhibited above as well as deficit score of 92% utilizing the [facility] Mobility Inpatient Short Form Presentation: Evolving Decision Makin low complexity Goals: Goals X1 week 1. Supine-Sit [Independent (I)] 2. Sit-Supine [I] 3. Sit-Stand [I] 4. Stand-Sit [I] 5. Bed-Chair [I] 6. Chair-Bed [i] 7. Gait tolerate ambulating greater than equal to 250 feet with least required assistive device 8. Stairs [I with use of railing] 9. Independent with home exercise program Plan of Care/Treatment Plan: 1-2x/day, 7 days/week x 1 week. Will periodically check in on patient throughout the day to further assess bed mobility, transfers and ambulation as pain allows. Look to fit for TLSO. Plan of care has been reviewed with the [facility] providing the service under Physical Therapy direction. Initiate Physical Therapy intervention for strengthening, bed mobility, transfers, gait, stairs, balance training, use of assistive device. DISCHARGE RECOMMENDATIONS: [] Home with no services [] [] Home with services [specify] [X] Home with outpatient PT once cleared medically [] SNF for continued rehabilitation [] [] [facility] Care [] [] SNF versus LTC based on ability to participate and progress [] TREATMENT CODE/TIME: 42312 25 minutes 8:55-9:15 Thank you for this referral. Noam Leroy PT, DPT Disclaimer: This note was created using [employer] voice recognition software. It was reviewed for major content. However, there may be multiple small discrepancies and errors due to the voice recognition aspects of the software.
--- NOTE | 2025-04-10 09:25 | W.PM.PROGNOT ---
Date of Service Date of service: 04/10/25 Time of Service: : Assessment and Plan Assessment and plan (1) Closed compression fracture of L1 vertebra: Start date: 04/09/25 Status: Acute Assessment and plan: As per [facility] consultation completed in the ED the patient does not need to be emergently transfer they do recommend follow-up in 6 to 8 weeks in the outpatient clinic. It seems that the patient already received spinal steroid injection around 2012 at [facility]. Ongoing physical therapy Multimodal pain management while managing adverse effects of opioid that resulted in nausea and vomiting. -Scheduled compazine IV and PRN zofran prior to PRN IVP opioids -Give RX 30-60 minutes prior to PT -Scheduled IV APAP -Scheduled IV ketorolac X 24 hours then re-evaluate -Transition to oral when able Labs in AM Symptoms improved status post intervention no further nausea vomiting tolerating oral intake this afternoon and was able to mobilize with PT (2) Spondylosis of lumbar region without myelopathy or radiculopathy: Status: Chronic Assessment and plan: As above No saddle anesthesia on exam Will continue to monitor (3) Type 2 diabetes mellitus: Status: Chronic Assessment and plan: Gluc AC and HS with SSI D5LR while oral not tolerated, glucose 80 this AM (4) GERD (gastroesophageal reflux disease): Status: Chronic Assessment and plan: Home PPI changed to IV protonix (5) Depression: Status: Chronic Assessment and plan: On going home zoloft (6) Hyperlipidemia: Status: Chronic Assessment and plan: Ongoing outpatient therapy On lovenox for DVT prophylaxis discussed with Dr. Yoon Subjective Subjective Patient reports: feels better, tolerating liquids well, tolerating a regular diet, voiding w/o difficulty, no bowel movement, nausea and vomiting; denies shortness of breath or fever Exam Narrative Exam Narrative: Alert oriented x 3 no neurological deficit, no saddle anesthesia sign, moves all 4 extremities, unlabored breathing, clear lungs, S1-S2 regular heart, abdomen is nonacute, no CVA tenderness Objective Last Vital Signs Temp 35.8 C L 04/10/25 07:41 Pulse 82 04/10/25 07:41 Resp 16 04/10/25 07:41 BP 126/67 04/10/25 07:41 Pulse Ox 98 04/10/25 07:41 Laboratory Results - last 24 hr 04/09/25 04/10/25 04/10/25 20:25 00:05 06:07 WBC 8.89 8.29 RBC 4.05 L 4.28 L Hgb 13.5 14.0 Hct 39.7 L 42.5 MCV 98 H 99 H MCH 33.3 H 32.7 MCHC 34.0 32.9 RDW 14.0 14.2 H Plt Count 197 192 MPV 10.0 10.1 Immature Gran % 0.7 Neutrophils % 58.6 Lymphocytes % 31.8 Monocytes % 7.3 Eosinophils % 0.9 Basophils % 0.7 Nucleated RBC % 0.0 Absolute Neutrophils 5.21 Absolute Lymphocytes 2.83 Absolute Monocytes 0.65 Absolute Eosinophils 0.08 Absolute Basophils 0.06 PT 10.3 INR 1.0 APTT 26.5 Sodium 138 140 Potassium 4.0 3.8 Chloride 104 104 Carbon Dioxide 24.4 27.6 Anion Gap 9.6 8.4 BUN 10 8 Creatinine 0.9 0.7 Est GFR (CKD-EPI 2020) 99.00 106.80 Glucose 205 H 82 Calcium 8.3 L 8.6 Magnesium 1.8 Total Bilirubin 0.6 0.8 AST 17 15 ALT 15 L 13 L Alkaline Phosphatase 111 99 Total Protein 6.9 6.8 Albumin 3.3 L 3.2 L Lipase 12 Urine Color Yellow Urine Clarity Clear Urine pH 5.5 Ur Specific [place] 1.025 Urine Protein Negative Urine Ketones Negative Urine Blood Negative Urine Nitrite Negative Urine Bilirubin Negative Urine Urobilinogen 0.2 Ur Leukocyte Esterase Negative Urine Glucose 250 H PAWSS Have you Been Recently Intoxicated or Drunk Within the Last 30 days?: No Have you Ever Experienced Previous Episodes of Alcohol Withdrawal?: No Have you ever Experienced Withdrawal Seizures?: No Have you ever Experienced Delirium Tremens(DT)s?: No Have you ever undergone Alcohol Rehabilitation Treatment (i.e, inpt ot outpatient treatment programs)?: No Have you ever Experienced Blackouts?: No Have you ever Combined Alcohol with other Downers within the last 90 days?: No Have you ever Combined Alcohol with any other Substance of Abuse during the last 90 days?: No Positive Blood Alcohol level on Presentation? [PCS.BAL]: Unable to Obtain Evidence of Increased Autonomic Activity (i.e. HR>120, tremor, sweating, agitation, nausea)?: Yes Result: 1 Time Spent with Patient Time Spent with Patient: >50 minutes Time was spent: preparing to see the patient(eg.review tests), obtaining and/or reviewing separately otained hiistory, ordering medications,tests, procedures, referring, communicating with other health hiv/aids care nurse, indepentently interpreting results, counseling the patient and care coordination
[2025-04-10 11:20] VITALS: BP 132/68; PULSE 84; RESP 16; TEMP 36.3; O2SAT 91
--- NOTE | 2025-04-10 11:21 | PDOC.CMIN ---
Date of service: 04/10/25 Time of Service: 11:21 Care Management Initial Assmt Initial Assessment Reason for Hospitalization: Acute compression fracture of L1 Functional Status/Living Situation Patient Presentation: Chaz was lying in bed, with his eyes closed when CM arrived. He presented to the ED to be evaluated of acute onset back pain. Chaz engaged in conversation minimally. He states he lives in [place] with his fiance Bianca; they have a couple stairs upon entrance. PT is consulted to work with Chaz. Per PT, this morning Chaz was in too much pain to sit or stand. Chaz states he is independant at baseline including driving. CM will continue to follow. Significant Other/Family: Out of area (Kids in [place]) Natural Supports: Family Employment Status: Retired Instrumental Activities of Daily Living (ADLs): Independent Medications Medication Management: No Issues/Barriers identified Physical Functioning/Mobility Assistive Device: none Advance Directives Advance Directives: Do you have an Advance Directive: N 03/17/13, 17:16 [address] File [address] [facility]: N 11/26/12, 13:55 Date Asked 04/09/25 04/09/25, 18:22 AD Date Reviewed COLST On File at [facility] No 04/09/25, 18:22 COLST Date Scanned Code Status Resuscitation Status Full Code Portal Pt does not currently have a portal and education provided: Yes Insurance Coverage/Financial Issues [place]: [place] - [id number] Care Team Visit Care Team Role Provider Type Monique Vera APRN MD [facility] STAFF PHYSICIAN [facility] Primary Care Provider REPORT RECIPIENT Judit Eagleoit Other Providers REG OCCUPATIONAL THERAPIST [facility]Patient [facility] Other Providers OTHER Beryl Ayala MD Emergency Provider [facility] STAFF PHYSICIAN Boo Tolbert Admit Provider NON-[facility] STAFF PHYSICIAN Attending Provider Discharge Potential Discharge Needs: PT Evaluation and PCP F/U Appt Anticipated Barriers to Discharge: Medical Status Patient/Family Education Needs: Review discharge instructions, discuss Ask Me Three Transportation: Private vehicle ([employer]) Plan: Chaz continues to experience pain and will remain under physical therapy and pain management treatment. Anticipate Chaz will be discharged home once medically ready. PT recommendations pending. It is recommended he will follow up with his community providers and continue per her plan of care. He will transport via private vehicle by [employer]. CM will continue to follow. Social Determinants of Health Screening Social Determinants of health last assessed in clinic: 04/10/25 Will the Patient Participate in the Screening?: Yes Do you worry about having a steady place to live?: no Problems where you live: no known problems In the past 12 months, have you had to go without electric, gas, oil or water in your home?: no 1. Within the past 12 months, we worried whether our food would run out before we got money to buy more.: Never true 2. Within the past 12 months, the food we bought just didn't last and we didn't have money to get more.: Never true Has lack of transportation kept you from medical appointments or from doing things needed for daily living?: no Has anyone in your life made you feel unsafe or unsupported?: no How hard is it for you to pay for the very basics like food, housing, medical care, and heating? Would you say it is:: Not hard at all Do you want help finding or keeping work or a job?: I do not need or want help If for any reason you need help with day-to-day activities such as bathing, preparing meals, shopping, managing finances, etc., do you get the help you need?: I don?t need any help How often do you feel lonely or isolated from those around you?: Never Do you speak a language other than Bulgarian at home?: No PFSH All Active Problems (Updated 04/09/25 @ 23:17 by Beryl Ayala MD) Hyperlipidemia (Chronic) Depression (Chronic) GERD (gastroesophageal reflux disease) (Chronic) Type 2 diabetes mellitus (Chronic) Closed compression fracture of L1 vertebra (Acute) Spondylosis of lumbar region without myelopathy or radiculopathy (Chronic) Social History Smoking/Tobacco Use Status: Current every day Smoking risk assessment performed?: Yes Alcohol Intake: never Drug use: Never Substance use type: does not use Housing: house Do you feel safe at home: Yes Do you feel safe in your relationship?: Yes Readmission Within the Past 30 Days Yes or No: No
[2025-04-10] MEDS: Pantoprazole 40 MG VIAL IVP (12:27)
[2025-04-10] MEDS: Prochlorperazine 10 MG/2 ML VIAL IVP ×2 (12:27→16:42)
[2025-04-10] MEDS: DEXTROSE 5%-LACTATED RINGERS 1,000 ML 50 ML IV (12:28)
[2025-04-10] MEDS: Ketorolac 15 MG/ML VIAL IVP ×2 (12:28→18:26)
--- NOTE | 2025-04-10 13:44 | PT.INTREAT ---
PT Notes Visit Reasons: Acute compression fracture of L1 Inpatient Physical Therapy Treatment Note [facility] Date: April 10, 2025?afternoon session PRECAUTIONS: Fall, standard precautions. Acute compression fracture L1 SUBJECTIVE: Unwilling to try walking. Do feel as though the pain meds have helped a little bit. Was pretty nauseous through the morning unable to keep food down secondary to the pain medication he has received earlier in the day. Patient states he has a lumbar brace with a air bladders that he uses on occasion. We discussed bringing that into the hospital for further sessions. OBJECTIVE: Discussed with nursing (Sybil) timing of PT session with pain medication administration.? ? Patient on 1.5 L nasal cannula O2 which was disconnected for ambulation purposes by nursing. IV port left arm which was disconnected for ambulation purposes by nursing. Nursing was notified upon completion of session for reapplication of O2 and IV.? ?Trialed use of DonJoy isoform brace. Patient indicated his brace at home feels more comfortable. Did not issue him DonJoy brace today. ? PAIN: 7/10 at time of today's session compared to 10/10 in the morning. VITALS: Monitored via nursing ? Therapeutic Activities (70546s6): Direct one-on-one instruction in dynamic activities to improve functional performance. ? BED MOBILITY/TRANSFERS? ?: Review of logroll technique for transfer supine to sit. Required verbal cues for applying force through elbows to drive trunk up from supine position and side-lying into a sitting bedside position. Performed supine quad sets, ankle pumps, straight leg raise 1 x 10 each lower extremity. In sitting performed long arc quads 1 x 10 bilateral.? Rolling L/R: Min assist x 1 Supine-sit: Min assist x 1? Sit-supine: Min assist x 1 for support of lower extremities onto bed ? Sit-stand: Min assist x 1 to front wheel walker? Stand-sit: Contact-guard x 1 from front wheel walker ? Bed-Chair: Declined sitting in chair ? Chair-bed: Declined sitting in chair Provided skilled cues and instruction on performance and technique throughout. Gait Training (01333z2): Direct one-on-one instruction and skilled instruction in: [x] employing an assistive device : Front wheel walker with verbal cues to apply force down to her hands to help decrease axial loading through lumbar spine. [] modified weight-bearing status [] movement sequencing [x] turning and movement with proper form [x] Provided verbal cues for equipment management and technique [x] Provided instruction in gait pattern [] Patient education regarding pacing and breathing techniques to maximize activity tolerance? GAIT? Assistive Device: Front wheel walker ? Weight bearing: Full weightbearing through bilateral lower extremities but uses increased arm pressure to decrease axial load through lumbar spine Assist: Standby assist? Distance: 15 feet x 2? ASSESSMENT: Compared to pain levels in the morning patient did very well this afternoon. Has good pain medication regime and would recommend continuing to check with nursing prior to initiating PT services for proper timing for pain management. I think the patient surprised himself with his tolerance to his walking. And hopeful that he will bring in his lumbar support brace. PLAN: Continue on twice a week basis for gentle lower extremity strengthening and functional mobility/gait training activities TREATMENT CODE/TIME: 00988/83117 ; 1:15-1:45 DISCHARGE RECOMMENDATION: Home with outpatient PT services when cleared medically.
[2025-04-10 15:14] VITALS: BP 127/67; PULSE 91; RESP 16; TEMP 36.5; O2SAT 94
[2025-04-10] MEDS: Insulin Aspart 300 UNITS/3 ML PEN SC ×2 (16:45→22:00)
[2025-04-10 20:23] VITALS: BP 116/67; PULSE 80; RESP 20; TEMP 36.9; O2SAT 94
[2025-04-10] MEDS: Prochlorperazine 10 MG/2 ML VIAL 5 MG IVP (22:00)
[2025-04-10 22:56] VITALS: BP 128/74; PULSE 76; RESP 18; TEMP 36.9; O2SAT 94
--- NOTE | 2025-04-11 | DI.RAD_ITS ---
Exam(s) XR LUMBAR SPINE AP, LAT EXAM: XR LUMBAR SPINE AP, LAT CLINICAL HISTORY: assess L1 compression fracture, standing. TECHNIQUE: 2D digital imaging was performed of the lumbar spine. Three images were obtained. AP, lateral and L5-S1 spot views were obtained. COMPARISON: CT CT THORACIC LUMBAR SPINE WO from 04/09/2025 CR XR LUMBAR SPINE AP, LAT from 04/10/2025 FINDINGS: The examination was performed with the patient upright. BONES: There has been no significant change in the appearance of the L1 compression fracture. There is stable loss of height. No retropulsion is seen. No new fractures identified. Mild degenerative changes are seen in the lumbar spine. No facet hypertrophy identified. DISKS: Intervertebral disc spaces are maintained. ALIGNMENT: Lumbar spinal alignment is within normal limits. No spondylolysis or spondylolisthesis. SOFT TISSUE: Atherosclerotic calcification is present. IMPRESSION: Stable alignment of the L1 compression fracture. DATA REPOSITORY: RADIATION DOSE DELIVERED:
[2025-04-11] MEDS: Normal Saline Flush 10 ML SYR ×2 (02:16→08:28)
[2025-04-11 03:55] VITALS: BP 149/78; PULSE 71; RESP 18; TEMP 36.5; O2SAT 95
[2025-04-11] MEDS: Prochlorperazine 10 MG/2 ML VIAL 5 MG IVP ×2 (04:01→06:09)
[2025-04-11] MEDS: Ketorolac 15 MG/ML VIAL IVP ×2 (06:09→12:40)
[2025-04-11 07:34] VITALS: BP 147/78; PULSE 70; RESP 16; TEMP 36.6; O2SAT 94
[2025-04-11] MEDS: Ondansetron 4 MG/2 ML VIAL IVP (08:26)
[2025-04-11] MEDS: Enoxaparin 40 MG/0.4 ML SYR SC (08:26)
[2025-04-11] MEDS: HYDROmorphone 2 MG/ML SYR IVP (08:27)
[2025-04-11] MEDS: Pantoprazole 40 MG VIAL IVP (08:27)
[2025-04-11] MEDS: Insulin Aspart 300 UNITS/3 ML PEN SC ×3 (09:02→21:45)
--- NOTE | 2025-04-11 10:58 | W.PM.PROGNOT ---
Date of Service Date of service: 04/11/25 Time of Service: 10:58 Assessment and Plan Assessment and plan (1) Closed compression fracture of L1 vertebra: Status: Acute Assessment and plan: follow-up in 6 to 8 weeks in the outpatient orthopedic clinic at [facility]. Lumbar AP and lateral while standing completed today Ongoing physical therapy Multimodal pain management while managing adverse effects of opioid that resulted in nausea and vomiting. -Scheduled compazine IV and PRN zofran prior to PRN IVP opioids, try to down step to oral - Premedication with pain med 30-60 minutes prior to PT - Continue IV APAP scheduled every 8 hours - can use IV ketorolac for breakthrough pain -Transition to oral with IV only for severe breakthrough pain (2) Spondylosis of lumbar region without myelopathy or radiculopathy: Status: Chronic Assessment and plan: As above No saddle anesthesia on exam Will continue to monitor (3) Type 2 diabetes mellitus: Status: Chronic Assessment and plan: Gluc AC and HS with SSI (4) GERD (gastroesophageal reflux disease): Status: Chronic Assessment and plan: Home PPI changed to IV protonix (5) Depression: Status: Chronic Assessment and plan: On going home zoloft (6) Hyperlipidemia: Status: Chronic Assessment and plan: Ongoing outpatient therapy On lovenox for DVT prophylaxis discussed with Dr. Yoon Subjective Subjective Patient reports: no new complaints, feels better, pain is less, tolerating liquids well, tolerating a regular diet and afebrile; denies shortness of breath Interval history since last seen: working with PT, denies any radiculopathy saddle anesthesia loss of bowel or bladder control Exam Narrative Exam Narrative: Chronically ill-appearing older than stated age head is atraumatic eyes are icteric noninjected oral mucosa slightly dry skin is ashen warm and dry neck full range of motion cardiovascular regular rate and rhythm respirations even and unlabored moves all extremities no peripheral edema sensation intact good pulses neurologic is awake alert oriented no focal deficits psychiatric appropriate mood and affect Objective Last Vital Signs Temp 36.6 C 04/11/25 07:34 Pulse 70 04/11/25 07:34 Resp 16 04/11/25 07:34 BP 147/78 H 04/11/25 07:34 Pulse Ox 94 04/11/25 07:34 PAWSS Have you Been Recently Intoxicated or Drunk Within the Last 30 days?: No Have you Ever Experienced Previous Episodes of Alcohol Withdrawal?: No Have you ever Experienced Withdrawal Seizures?: No Have you ever Experienced Delirium Tremens(DT)s?: No Have you ever undergone Alcohol Rehabilitation Treatment (i.e, inpt ot outpatient treatment programs)?: No Have you ever Experienced Blackouts?: No Have you ever Combined Alcohol with other Downers within the last 90 days?: No Have you ever Combined Alcohol with any other Substance of Abuse during the last 90 days?: No Positive Blood Alcohol level on Presentation? [PCS.BAL]: Unable to Obtain Evidence of Increased Autonomic Activity (i.e. HR>120, tremor, sweating, agitation, nausea)?: Yes Result: 1 Time Spent with Patient Time Spent with Patient: 35-49 minutes Time was spent: preparing to see the patient(eg.review tests), obtaining and/or reviewing separately otained hiistory, ordering medications,tests, procedures, referring, communicating with other health home health care coordinator, indepentently interpreting results and counseling the patient
[2025-04-11 11:48] VITALS: BP 122/69; PULSE 69; RESP 16; TEMP 36.2; O2SAT 90
--- NOTE | 2025-04-11 12:39 | PTTR_ITS ---
PT Notes Visit Reasons: Acute compression fracture of L1 Inpatient Physical Therapy Treatment Note [facility] Date: April 11, 2025 PRECAUTIONS: Standard SUBJECTIVE: Patient continues to complain of centralized low back pain with no radicular symptoms. Is feeling much better compared to yesterday. No nauseousness. Was able to eat breakfast and lunch without issue. Feels as though his pain levels are well-managed with medicine now. OBJECTIVE: Upon entering the room patient is having discussion with Jennifer Michelle [employer] AUDIT CLERK who will be ordering weightbearing x-ray. ? PAIN: 04/01 VITALS: Closely monitored via nursing ? Therapeutic Activities (02737i[1]): Direct one-on-one instruction in dynamic activities to improve functional performance. ? BED MOBILITY/TRANSFERS? Rolling L/R: Independent Supine-sit: Independent ? Sit-supine: Independent? Sit-stand: Independent ? Stand-sit: Independent ? Bed-Chair: Independent? Chair-bed: Independent Provided skilled cues and instruction on performance and technique throughout. ? STAIRS: Patient negotiated fabricated stairs in PT office ascending and descending 3 times standard step height. First session with railing second to without railing. Displayed good safety awareness and balance. He has negative Romberg. ? Therapeutic Exercises (60381o1): Direct one-on-one instruction in therapeutic exercises to develop strength, endurance, range of motion and flexibility. ? Exercises ?2 x 10 quad sets, long arc quads, 10 times mini squat, 20 ankle pumps, standing hip Pres flexion and abduction 1 x 10 each. Extension Ambulation: GAIT? Assistive Device: 150 feet with rolling walker, 500 feet no assistive device with standby assist. ? Weight bearing: Full Assist: Standby [] ? Distance:?150 feet with rolling walker, 300 feet no assistive device. No rest break ? Provided skilled instruction in proper exercise performance Provided skilled manual cues to facilitate proper muscle recruitment and/or form: [] ASSESSMENT:?Holding up very well. Independent with all functional mobility and stair negotiation. Ambulating without an assistive device with manageable symptoms. At this point patient has met all short-term goals established through PT and is appropriate for discharge. He is safe for room and hallway ambulation throughout the day. Sounds like they will be getting him a standing/weightbearing x-ray. PLAN: Discharge from an patient physical therapy services. TREATMENT CODE/TIME: 1230?1255 DISCHARGE RECOMMENDATION: Outpatient PT
[2025-04-11 15:44] VITALS: BP 130/69; PULSE 68; RESP 17; TEMP 36.7; O2SAT 93
[2025-04-11 21:48] VITALS: BP 158/77; PULSE 85; RESP 20; TEMP 36.5; O2SAT 98
[2025-04-11] MEDS: Acetaminophen 500 MG TAB 1000 MG PO (22:17)
[2025-04-11] MEDS: Lidocaine 5% Patch 2 PATCH TP (22:17)
[2025-04-12 07:17] VITALS: BP 141/62; PULSE 67; RESP 14; TEMP 35.5; O2SAT 94
--- NOTE | 2025-04-12 07:44 | OT.INIE ---
Occupational Therapy Notes Inpatient Occupational Therapy Evaluation Date: 04/12/25 Referring Doctor:Dr. Tolbert OT Orders: Non urgent D/C Non PT Dependent Precautions: Standard, Full PATIENT PROFILE/ADMITTING DIAGNOSIS: Pt is a 60 year old male who was admitted to Med Surg with the following dx of Hyprlipidemia, Depression, GERD, Type II DM, Closed ocmpression fx of L1, spondylosis of lumbar region without myelopathy or radiculopathy. Past Medical History: All Active Problems (Updated 04/09/25 @ 23:17 by Beryl Ayala MD) Hyperlipidemia (Chronic) Depression (Chronic) GERD (gastroesophageal reflux disease) (Chronic) Type 2 diabetes mellitus (Chronic) Closed compression fracture of L1 vertebra (Acute) Spondylosis of lumbar region without myelopathy or radiculopathy (Chronic) Social History/Home Situation: Pt lives in a private home with his finance. He is (I) with his ADL/IADL routines at his baseline level of function. He is (I) with driving and has a tub shower for bathing. No DME needed at this time or at his baseline. Equipment owned/DME: None SUBJECTIVE: Pt was laying in bed when OT arrived. He was agreeable to OT consult. OBJECTIVE: General Observation: Pleasant, IV access in the (R) UE Mental Status: A&Ox4 Pain: Minimal pain in low back ROM: RUE AROM WFL L UE AROM WFL STRENGTH: RUE 5/5 throughout globally LUE 5/5 throughout globally FUNCTIONAL MOBILITY/ADLS: Transfers (I) BATHING Not performed with OT, pt notes that he will perform this later. He is (I) with bathing based on assessment of his ROM and strength. DRESSING sitting on side of the bed Dressing LE (I) don and doffing sock with foot to bed lift and no DME needed for performance GROOMING Based on assessment (I) and back to baseline level of function TOILETING Based on assessment (I) and back to baseline level of function EATING Based on assessment (I) and back to baseline level of function BALANCE: Static sitting Normal Dynamic Sitting Normal Static Standing Normal Dynamic Standing Good SPECIAL TESTS: Daily Activity Limitations Standardized Measure [facility] AM -PAC ?6 clicks? Daily Activity Inpatient Short Form: Raw score: 24 Standardized score: 57.54 CMS score: 0.00% INFORMED CONSENT/EDUCATION: Pt instructed in purpose of OT Consult and plan of care. ASSESSMENT: Patient is a 60-year-old male referred to occupational therapy services with diagnosis of . Patient presents with clinical signs and symptoms consistent with Hyprlipidemia, Depression, GERD, Type II DM, Closed ocmpression fx of L1, spondylosis of lumbar region without myelopathy or radiculopathy. Pt was seen OT and is back to his baseline level of function. At this time pt would not need any further services or in home services. OT will plan to discharge pt from skilled OT services at this time. Patient is assessed as a Low 54083 complexity based on the following: History: See above Examination: see functional limitations as noted above Presentation: evolving Decision Making: Low complexity GOALS N/A seen for OT consult only. PLAN OF CARE/TREATMENT PLAN: Discharge from skilled OT services. DISCHARGE RECOMMENDATIONS OT recommends that pt return home with no services needed at this time, when medically cleared per MD. TREATMENT TIME/MINUTES/CODES 65390, 10 minutes (7:35-7:45) Judit Rogel OTR/L [facility] [place], [place]
[2025-04-12] MEDS: Normal Saline Flush 10 ML SYR (07:50)
[2025-04-12] MEDS: Pantoprazole 40 MG VIAL IVP (07:52)
[2025-04-12] MEDS: Patch Removal 2 EACH TP (07:56)
[2025-04-12] MEDS: Enoxaparin 40 MG/0.4 ML SYR SC (08:01)
[2025-04-12] MEDS: Insulin Aspart 300 UNITS/3 ML PEN SC ×2 (08:03→12:19)
[2025-04-12] MEDS: HYDROmorphone 2 MG TAB PO ×2 (08:14→12:44)
--- NOTE | 2025-04-12 15:06 | DSE_ITS ---
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 (3) Type 2 diabetes mellitus: Status: Chronic (4) GERD (gastroesophageal reflux disease): Status: Chronic (5) Depression: Status: Chronic (6) Hyperlipidemia: Status: Chronic Discharge Plan Disposition Patient Disposition: Home Condition: Improving Discharge Details Reason For Visit: Acute compression fracture of L1 Admit Date/Time: 04/12/25 09:28 Admit Provider: Boo Tolbert Attending Provider: Boo Tolbert Primary Care Provider: [facility] Hospital Course Hospital Course: This is a 60-year-old male patient past medical history significant for spondylosis of the lumbar region, diabetes mellitus type 2, depression, dyslipidemia, GERD who presented to the emergency department after sustaining a mechanical fall while he was carrying a heavy item down stairs and fell directly on his buttocks. He does have a history of chronic low back pain with known degenerative disc disease for which he takes gabapentin. He came to the emergency department for evaluation. He was found to have a new compression fracture of L1. His pain was unable to be managed adequately so he was admitted under hospitalist services for pain management and PT evaluation. Symptoms slowly improved over time. He was evaluated by physical therapy safely reambulated with his pain managed on oral medication. He was stable for discharge to home he will resume usual medications as previously directed. He has to follow-up with outpatient orthopedics in 6 to 8 weeks or return sooner for new or worsening symptoms. He will also be referred to outpatient physical therapy discharge discussed with Dr. Capellan Home Meds and New Rx's Prescriptions: New acetaminophen 500 mg Tablet 1,000 mg PO Q6H PRN PRNQty: 0 0RF ibuprofen 600 mg tablet 600 mg PO Q6H PRNQty: 60 0RF Continued insulin glargine [Lantus Solostar U-100 Insulin] 100 UNIT/1 ML insulin pen 60 unit SQ HS Rx Instructions: Dx: DM, uncontrolled For goal A1C less than 8% gabapentin 600 MG tablet 4 tab PO HS trazodone 50 MG tablet 50 mg PO HS sertraline [Zoloft] 100 MG tablet 100 mg PO DAILY simvastatin 10 MG tablet 10 mg PO HS nicotine [Nicoderm CQ] 1 EACH patch 24 hour 21 mg Transdermal DAILY omeprazole 20 MG capsule,delayed release(DR/EC) 20 mg PO DAILY albuterol sulfate [ProAir HFA] 8.5 GM HFA aerosol inhaler 1 puff Inhalation Q4H PRN Mundo Candelaria 160-9-4.8 mcg/actuation HFA aerosol inhaler 2 inh inhalation QAM AND QPM Discharge Instructions Instructions: Vertebral Compression Fracture (DC) Additional Instructions: no bending twisting or lifting from the waist. referral sent to outpatient Physical therapy Referrals: [facility] [Provider Group, Physical Therapy] [facility] [Primary Care Provider, Medicine] Referral Note: The [place] will call you to schedule an appointment. [facility] [place] Activity:: Activity as Tolerated Equipment/Supplies:: No Equipment Needed Diet:: As Tolerated Discharge Orders Discharge Orders: Discharge Order (Routine); Ordered 04/12/25 Ordered By: Jennifer Michelle DS: Summary Time Spent with Patient providing and/or coordinating discharge services: Less than 30 minutes Status at Discharge Functional status at discharge: uses cane/walker Overall status at discharge: patient is progressing back to baseline Mental Status: mental status grossly normal Speech and Movement: speech and movement normal Mood: congruent mood Affect: normal affect Exam Narrative Exam Narrative: Chronically ill-appearing older than stated age head is atraumatic eyes are icteric noninjected oral mucosa slightly dry skin is ashen warm and dry neck full range of motion cardiovascular regular rate and rhythm respirations even and unlabored moves all extremities no peripheral edema sensation intact good pulses neurologic is awake alert oriented no focal deficits psychiatric appropriate mood and affect Psych Mental Status: mental status grossly normal Speech and Movement: speech and movement normal Mood: congruent mood Affect: normal affect DS: Data Vitals/I&O Vitals and I&O: Vital Signs Temperature 35.5 C L 04/12/25 07:17 Temperature Source Tympanic 04/12/25 07:17 Pulse 67 04/12/25 07:17 Pulse Rhythm Regular 04/09/25 22:59 Pulse 63 04/09/25 22:30 Respiratory Rate 14 04/12/25 07:17 Respiratory Effort Normal 04/09/25 22:59 Respiratory Depth Shallow 04/09/25 22:59 Respiratory Pattern Normal 04/09/25 22:59 Blood Pressure 141/62 H 04/12/25 07:17 Blood Pressure Mean 88 04/12/25 07:17 Blood Pressure Position Sitting 04/09/25 18:17 Pulse Oximetry 94 04/12/25 07:17 Oxygen Delivery Method Room Air 04/12/25 07:17 Oxygen Flow Rate 0 04/12/25 07:17 Pain Level 8 04/12/25 12:44 Comment Pt asleep att. 04/10/25 03:10 Intake & Output 04/11/25 04/12/25 04/12/25 23:59 11:59 23:59 Intake Total 220 / 220 400 / 640 240 / 640 Output Total 260 / 260 Balance -40 / -40 400 / 640 240 / 640 Weight 73.7 kg Intake: Oral 220 / 220 400 / 640 240 / 640 Output: Urine 260 / 260 Other: Urine Color Dark Coni Brown Urine Appearance Clear PFSH All Active Problems (Updated 04/09/25 @ 23:17 by Beryl Ayala MD) Hyperlipidemia (Chronic) Depression (Chronic) GERD (gastroesophageal reflux disease) (Chronic) Type 2 diabetes mellitus (Chronic) Closed compression fracture of L1 vertebra (Acute) Spondylosis of lumbar region without myelopathy or radiculopathy (Chronic) Social History Smoking/Tobacco Use Status: Current every day Smoking risk assessment performed?: Yes Alcohol Intake: never Drug use: Never Substance use type: does not use Housing: house Do you feel safe at home: Yes Do you feel safe in your relationship?: Yes Time Spent with Patient Time Spent with Patient: 45-69 minutes Time was spent: preparing to see the patient(eg.review tests), ordering medications,tests, procedures, referring, communicating with other health child care attendant school and indepentently interpreting results
--- NOTE | 2025-04-12 15:45 | PDOC.CMDIS ---
Date of service: 04/12/25 Time of Service: 15:45 LACE Index Scoring Tool Questions: Length of Stay (in days): 3 Was the patient admitted via the E.D.?: Yes Comorbidities: Diabetes w/o Complication E.D. Visits: 1 Answers: Total Score: 8 Risk of Readmission: Low Risk Care Management Discharge Plan Reason for Hospitalization: Acute compression fracture L1 Discharge Plan: Discharge home via private vehicle with Fianc?. Follow up with community/[facility] providers and discharge plan of care and outpatient PT as directed. No new services are ordered prior to discharge. Patient/Family Education Needs: Review discharge instructions, limitations, and plan to follow up after discharge. Discuss ask me three. Services Needed at Discharge: Physical Therapy
--- NOTE | 2025-04-12 17:12 | NUR.NOTE ---
Nursing Note: received call from [facility] to verify a controlled substance. Chart was accessed and then noted that this was an inpatient order. Transferred Pharmacist to the med surg floor for verification.
== END 2025-04-12 15:55 | disposition home or self-care (01) | DRG 552 ==
LOC: ER 22:12 → MS 22:49
PROVIDERS: Admitting Provider Family Medicine; Emergency Provider Emergency Medicine; Responsible Provider Nurse Practitioner Acute Care; Visit Provider Family Medicine
DX: S32.010A Wedge compression fracture of first lumbar vertebra, initial encounter for closed fracture (principal); M47.816 Spondylosis without myelopathy or radiculopathy, lumbar region; E11.9 Type 2 diabetes mellitus without complications; K21.9 Gastro-esophageal reflux disease without esophagitis; E78.2 Mixed hyperlipidemia; M51.26 Other intervertebral disc displacement, lumbar region; F17.210 Nicotine dependence, cigarettes, uncomplicated; M51.369 Other intervertebral disc degeneration, lumbar region without mention of lumbar back pain or lower extremity pain; G89.29 Other chronic pain; W10.8XXA Fall (on) (from) other stairs and steps, initial encounter; Z79.4 Long term (current) use of insulin
CPT/HCPCS: 00123; 36415; 80053; 83690; 85027; 96365; 96372; 96375; 96376; 97110; 97161; 97165; 97530; 99285; J1650; 70450; 72100; 72125; 72128; 72131; 81003; 83735; 85025; 85610; 85730; 99223; 99233; 99239; G0378; J0131; J0780; J1171; J1815; J1885; J2405; J2470; J3490

== ENCOUNTER 2025-04-15 09:30 | Inpatient (IN) | payer OTHER, SELFPAY ==
[2025-04-15] VITALS (93 sets, daily range): BP systolic 103–159; BP diastolic 52–86; PULSE 87–130; RESP 12–32; TEMP 36.5–37.2; O2SAT 75–100
--- NOTE | 2025-04-15 09:45 | RT.EKG_ITS ---
APPROVED REPORT Exam: Resting ECG Reason for Exam: tachycardia Patient Location: E HR:105 bpm ECG Measurements Heart Rate 105 AXIS IL 133 P 84 QRSd 81 QRS -36 QT 326 T 72 QTc 431 Conclusion Sinus tachycardia...rate> 99 Left axis deviation...QRS axis (-30,-90) No Occlusion RI
[2025-04-15 10:03] LABS: BE (Venous) -15 mmol/L (-2-3); HCO3 (Venous) 13 mmol/L (23-28); O2 Sat (Venous) 64 %; TCO2 (Venous) 12 mmol/L (24-29); pCO2 (Venous) 34 mmHg (41-51); pO2 (Venous) 36 mmHg
[2025-04-15 10:04] LABS: Abs Immature Grans 0.06 10^3/uL (0.0-0.06); HCT 52.9 % (40.0-50.0); HGB 17.5 g/dL (13.5-17.5); Immature Grans % 0.6 %; MCH 33.1 pg (27.0-33.0); MCHC 33.1 % (32.0-36.0); MCV 100 fL (80-95); MPV 10.8 fL (8.0-11.0); Platelet Count 247 10^3/uL (130-400); RBC 5.28 10^6/uL (4.36-5.78); RDW 13.2 % (11.8-14.1); RDW-SD 49.4 fL; WBC 10.43 10^3/uL (4.4-10.8)
[2025-04-15] MEDS: Prochlorperazine 10 MG/2 ML VIAL IVP (10:14)
[2025-04-15] MEDS: Normal Saline 50 ML (10:14)
[2025-04-15 10:28] LABS: ALT 18 U/L (16-63); AST 10 U/L (15-37); Albumin 4.7 g/dL (3.4-5.0); Alkaline Phosphatase 158 U/L (46-116); Anion Gap 29.6 mmol/L (3-11); BUN 42 mg/dL (7-18); Bilirubin, Total 0.8 mg/dL (0.2-1.0); CO2 15.4 mmol/L (21.0-32.0); Calcium 10.5 mg/dL (8.5-10.1); Chloride 88 mmol/L (98-107); Estimated GFR 24.31 (mL/min/1.73m2); Magnesium 2.2 mg/dL (1.8-2.4); Sodium 133 mmol/L (136-145); Total Protein 9.8 g/dL (6.4-8.2); Troponin I 25 ng/L (<or=76)
--- NOTE | 2025-04-15 10:29 | W.ED.GENAD ---
Discharge Plan Disposition Patient Disposition: Admit to [facility] Condition: Critical Discharge Details Clinical Impression: DKA (diabetic ketoacidosis), IGNACIA (acute kidney injury), Acute hyperkalemia Primary Care Provider: Unknown,Unknown ED Provider: Gris Hernandez Home Meds and New Rx's Prescriptions: No Action insulin glargine [Lantus Solostar U-100 Insulin] 100 UNIT/1 ML insulin pen 35 unit SQ HS Rx Instructions: Dx: DM, uncontrolled For goal A1C less than 8% sertraline [Zoloft] 100 MG tablet 100 mg PO DAILY nicotine [Nicoderm CQ] 1 EACH patch 24 hour 21 mg Transdermal DAILY omeprazole 20 MG capsule,delayed release(DR/EC) 20 mg PO DAILY albuterol sulfate [ProAir HFA] 8.5 GM HFA aerosol inhaler 1 puff Inhalation Q4H PRN Breztri Aerosphere 160-9-4.8 mcg/actuation HFA aerosol inhaler 2 inh inhalation QAM AND QPM acetaminophen 500 mg Tablet 1,000 mg PO Q6H PRN PRNQty: 0 0RF ibuprofen 600 mg tablet 600 mg PO Q6H PRNQty: 60 0RF hydromorphone 2 mg tablet 2 mg PO Q6H PRN Patient Comments: TAKE 1 TABLET BY MOUTH EVERY 6 HOURS NEEDED FOR SEVERE BREAKTHROUGH PAIN HPI General Date/Time Provider Initiated Documentation: 04/15/25 09:38. HPI Narrative: 60-year-old male with insulin-dependent type 2 diabetes, compression fracture of V1 on the 18th, depression, and hyperlipidemia. Presents with vomiting for 2 days. Unable to eat or drink, taking insulin without eating. No pain, chest pain, shortness of breath, sick contacts, or alcohol consumption. Alert and oriented, in no acute distress. Related Data Home Medications ?Medication ?Instructions ?Recorded ?Confirmed insulin glargine 100 unit/mL (3 35 unit SQ HS 12/15/12 04/15/25 mL) subcutaneous pen (Lantus Solostar U-100 Insulin) albuterol sulfate 90 mcg/actuation 1 puff inhalation Q4H PRN 12/24/16 04/15/25 aerosol inhaler (ProAir HFA) nicotine 21 mg/24 hr daily 21 mg transdermal DAILY 12/24/16 04/15/25 transdermal patch (Nicoderm CQ) omeprazole 20 mg capsule,delayed 20 mg PO DAILY 12/24/16 04/15/25 release sertraline 100 mg tablet (Zoloft) 100 mg PO DAILY 12/24/16 04/15/25 acetaminophen 500 mg tablet 1,000 mg (2 x 500 mg) PO Q6H PRN 04/12/25 04/15/25 PRN #0 tabs budesonide 160 mcg-glycopyr 9 2 inh inhalation QAM AND QPM 04/12/25 04/15/25 mcg-formot 4.8 mcg/actuation HFA inhaler (Breztri Aerosphere) ibuprofen 600 mg tablet 600 mg PO Q6H PRN #60 tabs 04/12/25 04/15/25 hydromorphone 2 mg tablet 2 mg PO Q6H PRN 04/15/25 04/15/25 Previous Rx's ?Medication ?Instructions ?Recorded acetaminophen 500 mg tablet 1,000 mg (2 x 500 mg) PO Q6H PRN 04/12/25 PRN #0 tabs ibuprofen 600 mg tablet 600 mg PO Q6H PRN #60 tabs 04/12/25 Allergies Allergy/AdvReac Type Severity Reaction Status Date / Time codeine Allergy Mild Rash Unverified 04/15/25 09:36 empagliflozin (From Allergy Mild Skin Rash Verified 04/15/25 09:36 Jardiance) General Stated Complaint: Nausea/Vomit/Diar BRENDA: 3 Exam Narrative Exam Narrative: General Appearance: Alert and oriented, no acute distress. Vital signs: Within normal limits. HEENT: Dry mucous membranes. Respiratory: Lungs clear to auscultation. Cardiovascular: Sinus tachycardia without murmur. Gastrointestinal: Abdomen nontender. Skin: Warm and dry, no rash. Neurological: Neurologically intact. Course Vital Signs Vital signs: Vital Signs Temperature 36.5 C 04/15/25 09:31 Pulse 112 H 04/15/25 09:31 Respiratory Rate 20 04/15/25 09:31 Blood Pressure 129/80 04/15/25 09:31 Pulse Oximetry 99 04/15/25 09:31 Temperature 36.5 C 04/15/25 10:19 Temperature Source Tympanic 04/15/25 10:19 Pulse 112 H 04/15/25 10:19 Respiratory Rate 20 04/15/25 10:19 Blood Pressure 129/80 04/15/25 10:19 Pulse Oximetry 99 04/15/25 10:19 Oxygen Delivery Method Room Air 04/15/25 10:19 Oxygen Flow Rate 0 04/15/25 10:19 Pain Level 8 04/15/25 10:19 Comment chronic back pain 04/15/25 10:19 Lab/Test Results Lab/Test Results: 04/15/25 10:07 Blood Blood Culture - Pending 04/15/25 09:55 Blood Blood Culture - Pending Laboratory Tests Range/Units 04/15/25 09:55 WBC (4.4-10.8) 10^3/uL 10.43 RBC (4.36-5.78) 10^6/uL 5.28 Hgb (13.5-17.5) g/dL 17.5 Hct (40.0-50.0) % 52.9 H MCV (80-95) fL 100 H MCH (27.0-33.0) pg 33.1 H MCHC (32.0-36.0) % 33.1 RDW (11.8-14.1) % 13.2 Plt Count (130-400) 10^3/uL 247 MPV (8.0-11.0) fL 10.8 Immature Gran % % 0.6 Neutrophils % % 80.0 Lymphocytes % % 13.1 Monocytes % % 5.8 Eosinophils % % 0.0 Basophils % % 0.5 Nucleated RBC % (0.0-0.3) % 0.0 Absolute Neutrophils (1.2-6.7) 10^3/uL 8.35 H Absolute Lymphocytes (1.2-3.4) 10^3/uL 1.37 Absolute Monocytes (0.1-0.8) 10^3/uL 0.60 Absolute Eosinophils (0.0-0.7) 10^3/uL 0.00 Absolute Basophils (0.0-0.2) 10^3/uL 0.05 VBG pH (7.31-7.41) 7.20 L VBG pCO2 (41-51) mmHg 34 L VBG pO2 mmHg 36 VBG HCO3 (23-28) mmol/L 13 L VBG Total CO2 (24-29) mmol/L 12 L VBG O2 Saturation % 64 VBG Base Excess (-2-3) mmol/L -15 L VBG Lactate (<or=2.0) mmol/L 3.2 H* Medical Decision Making Lab: Blood sugar >500, pH 7.2, gap 29, BUN 42, creatinine 2.9, potassium 6.1, lactate 3.2, lipase mildly elevated, ketones >160 on urinalysis. Imaging: CT abdomen/pelvis and chest x-ray show no acute abnormality or infection. Per radiology interpretation my review Initial Assessment: 52-year-old male with insulin-dependent type 2 diabetes, compression fracture of V1, depression, and hyperlipidemia. Vomiting for 2 days, unable to eat or drink, dry mucous membranes, sinus tachycardia, clear lungs. Differential Diagnosis: - Diabetic ketoacidosis: Vomiting, blood sugar >500, pH 7.2, gap 29, BUN 42, creatinine 2.9, potassium 6.1, ketones >160 on urinalysis, slurred speech. Treated with calcium, insulin bolus, insulin infusion, NS, albuterol, sodium bicarb. Responded well. - Infection: Tachycardia, tachypnea, elevated lactate 3.2. Ceftriaxone ordered. No infection on urinalysis, chest x-ray, CT abdomen/pelvis. ED Course: - Blood sugar >500 - CT abdomen/pelvis: No acute abnormality (read by me) - Chest x-ray: No infection (read by me) - Ceftriaxone, antiemetics, calcium, insulin bolus, insulin infusion, NS, albuterol, sodium bicarb administered - Case discussed with Dr. Capellan for admission Final Assessment: Vomiting, hyperglycemia, general malaise. No infection. Treated for diabetic ketoacidosis, hyperkalemia, acute kidney injury. Responded well. Clinical Impression: - Diabetic ketoacidosis - Acute kidney injury - Hyperkalemia Disposition: - Admission: ICU for diabetic ketoacidosis, IGNACIA, hyperkalemia. Critical Care: 45 minutes MDM Components Evaluation: - Number of Differential Diagnoses or Management Options: Diabetic ketoacidosis, Infection - Amount and Complexity of Data Reviewed: Blood sugar, CT abdomen/pelvis, chest x-ray, urinalysis, lactate level - Risk of Complication and Morbidity or Mortality: High risk due to diabetic ketoacidosis, hyperkalemia, acute kidney injury Critical Care Time Critical Care Time Attestation: 45 minutes critical care time secondary to telemetry monitoring repeat labs interpretation review IV calcium IV insulin bolus and infusion for acute hyperkalemia diabetic ketoacidosis, continuous fluids for IGNACIA admission to the ICU PFSH All Active Problems (Updated 04/15/25 @ 14:15 by SAMUEL Mata) Acute hyperkalemia (Acute) IGNACIA (acute kidney injury) (Acute) DKA (diabetic ketoacidosis) (Acute) Hyperlipidemia (Chronic) Depression (Chronic) GERD (gastroesophageal reflux disease) (Chronic) Type 2 diabetes mellitus (Chronic) Closed compression fracture of L1 vertebra (Acute) Spondylosis of lumbar region without myelopathy or radiculopathy (Chronic) Social History Smoking/Tobacco Use Status: Current every day Smoking risk assessment performed?: Yes Alcohol Intake: never Drug use: Never Substance use type: does not use Housing: house Do you feel safe at home: Yes Do you feel safe in your relationship?: Yes
[2025-04-15] MEDS: Normal Saline 1,000 ML 1000 ML IV ×2 (10:30→11:30)
[2025-04-15] MEDS: cefTRIAXone 2 GM/50 ML BAG IVPB (10:31)
[2025-04-15 10:35] LABS: Glucose 661 mg/dL (74-106); Potassium 6.1 mmol/L (3.5-5.1)
--- NOTE | 2025-04-15 10:45 | DI.CT_ITS ---
Exam(s) CT ABDOMEN PELVIS WO EXAM: CT ABDOMEN PELVIS WO CLINICAL HISTORY: vomiting, dka. TECHNIQUE: Imaging Protocol: Axial computed tomography images with coronal and sagittal reformatted images were created and reviewed. Oral: no COMPARISON: CT CT THORACIC LUMBAR SPINE WO from 04/09/2025 mild emphysematous changes FINDINGS: Lung Bases: No acute findings. Liver: Normal density. No suspicious mass. Gallbladder and biliary tract: No radiodense calculus or biliary dilation. Pancreas: Normal density. No abnormal calcifications or inflammatory process. Spleen: Normal. Kidneys: Normal size, contour and axis. No radiodense stones. No obstructive uropathy. No suspicious masses seen. Adrenal glands: No masses seen. Lymph nodes: Within normal limits. Vasculature: Abdominal aorta non-dilated. Moderate atherosclerotic changes. Soft tissues: Unremarkable. Bladder: Over distended. No wall thickening. No mass or calculi. Bowel: No obstruction or bowel wall thickening. Moderate quantity of stool. The appendix is not visualized. No inflammatory change in the right quadrant. Peritoneal cavity: No ascites. No focal collection. No mesenteric inflammatory response. Reproductive organs: Unremarkable. Bones: Stable mild compression fracture of superior endplate of L1. IMPRESSION: No acute abnormality in the abdomen or pelvis. RADIATION DOSE DELIVERED: 361.38mGy.cm Total DLP DATA REPOSITORY: All CT scans at this facility are submitted to the National Radiology Data Registry (NRDR) Dose Index Registry (DIR) with the [employer] (A[employer]). RADIATION OPTIMIZATION: All CT scans at this facility use at least one of these dose optimization techniques: automated exposure control; mA and/or kV adjustment per patient size (includes targeted exams where dose is matched to clinical indication); or iterative reconstruction.
--- NOTE | 2025-04-15 10:45 | DI.RAD_ITS ---
Exam(s) XR CHEST 2V PA LATERAL EXAM: XR CHEST 2V PA LATERAL CLINICAL HISTORY: dka, vomiting TECHNIQUE: 2D digital imaging was performed. Two views. COMPARISON: CR XR CHEST 2V PA LATERAL from 10/20/2024 FINDINGS: HEART: Normal size. Aorta: Not dilated. PULMONARY VASCULATURE: Normal. MEDIASTINUM: Unremarkable. LUNGS: Clear. PLEURAL SPACE: No pleural effusion or pneumothorax. BONE:Unremarkable for age. SOFT TISSUES: Unremarkable. IMPRESSION: No acute abnormality. DATA REPOSITORY: RADIATION DOSE DELIVERED:
[2025-04-15 10:53] LABS: Lipase 377 U/L (<78)
[2025-04-15] MEDS: Calcium Gluconate 4.65 MEQ/10 ML VIAL 4.65 MG IVP (11:08)
[2025-04-15] MEDS: Albuterol HFA 8 GM 60 PUFF INH IH (11:08)
[2025-04-15 11:17] LABS: BE (Venous) -15 mmol/L (-2-3); HCO3 (Venous) 13 mmol/L (23-28); O2 Sat (Venous) 68 %; TCO2 (Venous) 12 mmol/L (24-29); pCO2 (Venous) 36 mmHg (41-51); pO2 (Venous) 40 mmHg
[2025-04-15 11:18] LABS: COVID-19 PCR Negative (Negative); RSV PCR Negative (Negative)
[2025-04-15] MEDS: INSULIN REGULAR IN 0.9 % NACL 100 UNIT/100 ML BAG 7.484 UNIT IVINF (11:31)
[2025-04-15] MEDS: Insulin REGULAR-Human 100 UNITS/ML UNIT 10 UNITS IV (11:32)
[2025-04-15] MEDS: Sodium Bicarbonate 50 MEQ/50 ML SYR IVP (11:41)
[2025-04-15 11:50] LABS: Anion Gap 27.8 mmol/L (3-11); BUN 41 mg/dL (7-18); CO2 15.2 mmol/L (21.0-32.0); Calcium 9.8 mg/dL (8.5-10.1); Chloride 91 mmol/L (98-107); Estimated GFR 25.36 (mL/min/1.73m2); Sodium 134 mmol/L (136-145)
[2025-04-15] MEDS: Normal Saline 100 ML (11:53)
[2025-04-15 11:58] LABS: Troponin I 21 ng/L (<or=76)
[2025-04-15 12:02] LABS: Glucose 653 mg/dL (74-106); Potassium 6.1 mmol/L (3.5-5.1)
[2025-04-15 12:09] LABS: Glucose 500 mg/dL (Negative)
[2025-04-15 12:24] LABS: C & S Indicated? No; RBC Negative HPF (0-2); WBC 0-2 HPF (0-5)
[2025-04-15 13:15] LABS: BE (Venous) -10 mmol/L (-2-3); HCO3 (Venous) 17 mmol/L (23-28); O2 Sat (Venous) 63 %; TCO2 (Venous) 16 mmol/L (24-29); pCO2 (Venous) 42 mmHg (41-51); pO2 (Venous) 36 mmHg
[2025-04-15] MEDS: Normal Saline 1,000 ML 250 ML IV (13:23)
[2025-04-15 13:37] LABS: Anion Gap 23.6 mmol/L (3-11); BUN 39 mg/dL (7-18); CO2 19.4 mmol/L (21.0-32.0); Calcium 9.8 mg/dL (8.5-10.1); Chloride 98 mmol/L (98-107); Estimated GFR 29.05 (mL/min/1.73m2); Glucose 423 mg/dL (74-106); Potassium 5.2 mmol/L (3.5-5.1); Sodium 141 mmol/L (136-145)
--- NOTE | 2025-04-15 14:05 | W.PM.HP.N ---
Date of service: 04/15/25 Time of Service: 14:05 Assessment and Plan Assessment and plan (1) DKA (diabetic ketoacidosis): Status: Acute Assessment and plan: - Patient met criteria for DKA. Initial blood sugar 661, anion gap of 29.6, hyperkalemia with potassium of 6.1, pH of 7.2 on VBG, and greater than 160 ketones in urine - Patient was given insulin bolus and started on insulin drip with improvement in his pH, potassium (down to 5.2), as well as his glucose which now 423 and anion gap of 23.6 - Will continue on DKA insulin drip protocol until anion gap is closed - Once gap is closed we will encourage p.o. intake and if patient is able to tolerate will transition back to subcutaneous insulin - Will continue IV fluids with or without potassium, with or without glucose based on potassium and glucose levels (2) IGNACIA (acute kidney injury): Status: Acute Assessment and plan: - Likely precipitating factor in DKA as patient appears to be dehydrated - Baseline creatinine 0.7, was found to be 2.9 upon arrival in the emergency department - Has already improved to 2.5 after IV fluids - Continue to monitor BUN and creatinine (3) Closed compression fracture of L1 vertebra: Status: Acute Assessment and plan: - Continue pain regimen (4) Hyperlipidemia: Status: Chronic Assessment and plan: -Continue statin (5) Depression: Status: Chronic Assessment and plan: - Continue SSRI History of Present Illness History of Present Illness Chief Complaint: Vomiting Narrative: 60-year-old gentleman with a past medical history of IDDM, C1 compression fracture on 09 April, hyperlipidemia and depression who presents the emergency department 2 days of vomiting. Patient was recently hospitalized and was discharged home, however over the subsequent 2 days he has had poor p.o. intake that then resulted in vomiting and inability to eat or drink therefore had not also used his insulin. Denies any fevers, headaches, dizziness, chest pain, shortness of breath. In the emergency department the patient was noted as having normal vital signs and normal CBC however, CMP showed initial potassium of 6.1, and anion gap of 29.6, glucose of 661, urine was positive for ketones and his VBG showed acidosis consistent with DKA. Additionally, his creatinine was elevated to 2.9 (was 0.7 on 04/10/2025). Patient was given IV insulin bolus and ultimately put on insulin drip with improvement in both his anion gap, blood sugar and potassium. Chest x-ray and CT abdomen pelvis did not show any acute findings. At which time emergency room provider paged hospitalist for admission for patient in DKA. Review of Systems All systems reviewed & are unremarkable except as noted in HPI and below PFSH All Active Problems (Updated 04/15/25 @ 14:15 by SAMUEL Mata) Acute hyperkalemia (Acute) IGNACIA (acute kidney injury) (Acute) DKA (diabetic ketoacidosis) (Acute) Hyperlipidemia (Chronic) Depression (Chronic) GERD (gastroesophageal reflux disease) (Chronic) Type 2 diabetes mellitus (Chronic) Closed compression fracture of L1 vertebra (Acute) Spondylosis of lumbar region without myelopathy or radiculopathy (Chronic) Social History Smoking/Tobacco Use Status: Current every day Smoking risk assessment performed?: Yes Alcohol Intake: never Drug use: Never Substance use type: does not use Housing: house Do you feel safe at home: Yes Do you feel safe in your relationship?: Yes Meds Allergies and Home Medications Allergies Allergy/AdvReac Type Severity Reaction Status Date / Time codeine Allergy Mild Rash Unverified 04/15/25 09:36 empagliflozin (From Allergy Mild Skin Rash Verified 04/15/25 09:36 Jardiance) Home Medications ?Medication ?Instructions ?Recorded ?Confirmed ?Type insulin glargine 100 unit/mL (3 35 unit SQ HS 12/15/12 04/15/25 History mL) subcutaneous pen (Lantus Solostar U-100 Insulin) albuterol sulfate 90 mcg/actuation 1 puff inhalation Q4H PRN 12/24/16 04/15/25 History aerosol inhaler (ProAir HFA) nicotine 21 mg/24 hr daily 21 mg transdermal DAILY 12/24/16 04/15/25 History transdermal patch (Nicoderm CQ) omeprazole 20 mg capsule,delayed 20 mg PO DAILY 12/24/16 04/15/25 History release sertraline 100 mg tablet (Zoloft) 100 mg PO DAILY 12/24/16 04/15/25 History acetaminophen 500 mg tablet 1,000 mg (2 x 500 mg) PO Q6H PRN 04/12/25 04/15/25 Rx PRN #0 tabs budesonide 160 mcg-glycopyr 9 2 inh inhalation QAM AND QPM 04/12/25 04/15/25 History mcg-formot 4.8 mcg/actuation HFA inhaler (Breztri Aerosphere) ibuprofen 600 mg tablet 600 mg PO Q6H PRN #60 tabs 04/12/25 04/15/25 Rx hydromorphone 2 mg tablet 2 mg PO Q6H PRN 04/15/25 04/15/25 History Exam Narrative Exam Narrative: Fatigued appearing gentleman laying in bed in no acute distress, ANO x 4, heart regular rhythm, lungs good auscultation bilaterally, abdomen soft, nontender, nondistended Results Labs 04/15/25 09:55 04/15/25 16:10 Labs: Laboratory Results - last 24 hr 04/15/25 04/15/25 04/15/25 09:55 10:38 11:07 WBC 10.43 RBC 5.28 Hgb 17.5 Hct 52.9 H MCV 100 H MCH 33.1 H MCHC 33.1 RDW 13.2 Plt Count 247 MPV 10.8 Immature Gran % 0.6 Neutrophils % 80.0 Lymphocytes % 13.1 Monocytes % 5.8 Eosinophils % 0.0 Basophils % 0.5 Nucleated RBC % 0.0 Absolute Neutrophils 8.35 H Absolute Lymphocytes 1.37 Absolute Monocytes 0.60 Absolute Eosinophils 0.00 Absolute Basophils 0.05 VBG pH 7.20 L 7.17 L* VBG pCO2 34 L 36 L VBG pO2 36 40 VBG HCO3 13 L 13 L VBG Total CO2 12 L 12 L VBG O2 Saturation 64 68 VBG Base Excess -15 L -15 L VBG Lactate 3.2 H* Sodium 133 L 134 L Potassium 6.1 H* 6.1 H* Chloride 88 L 91 L Carbon Dioxide 15.4 L 15.2 L Anion Gap 29.6 H 27.8 H BUN 42 H 41 H Creatinine 2.9 H 2.8 H Est GFR (CKD-EPI 2020) 24.31 25.36 Glucose 661 H* 653 H* Calcium 10.5 H 9.8 Magnesium 2.2 Total Bilirubin 0.8 AST 10 L ALT 18 Alkaline Phosphatase 158 H Troponin I 25 21 Total Protein 9.8 H Albumin 4.7 Lipase 377 H Urine Color Urine Clarity Urine pH Ur Specific [place] Urine Protein Urine Ketones Urine Blood Urine Nitrite Urine Bilirubin Urine Urobilinogen Ur Leukocyte Esterase Urine RBC Urine WBC Ur Epithelial Cells Urine Crystals Urine Bacteria Urine Casts Urine Mucus Urine Other Ur Culture Indicated? Urine Glucose COVID-19 Source Nasopharynx SARS-CoV-2 (PCR) Negative Influenza Type A (PCR) Negative Influenza Type B (PCR) Negative RSV (PCR) Negative 04/15/25 04/15/25 11:54 13:10 WBC RBC Hgb Hct MCV MCH MCHC RDW Plt Count MPV Immature Gran % Neutrophils % Lymphocytes % Monocytes % Eosinophils % Basophils % Nucleated RBC % Absolute Neutrophils Absolute Lymphocytes Absolute Monocytes Absolute Eosinophils Absolute Basophils VBG pH 7.22 L VBG pCO2 42 VBG pO2 36 VBG HCO3 17 L VBG Total CO2 16 L VBG O2 Saturation 63 VBG Base Excess -10 L VBG Lactate 3.7 H* Sodium 141 Potassium 5.2 H Chloride 98 Carbon Dioxide 19.4 L Anion Gap 23.6 H BUN 39 H Creatinine 2.5 H Est GFR (CKD-EPI 2020) 29.05 Glucose 423 H Calcium 9.8 Magnesium Total Bilirubin AST ALT Alkaline Phosphatase Troponin I Total Protein Albumin Lipase Urine Color Yellow Urine Clarity Clear Urine pH 5.5 Ur Specific [place] 1.015 Urine Protein 30 H Urine Ketones >=160 H Urine Blood Trace-intact H Urine Nitrite Negative Urine Bilirubin Moderate H Urine Urobilinogen 0.2 Ur Leukocyte Esterase Negative Urine RBC Negative Urine WBC 0-2 Ur Epithelial Cells Few Urine Crystals Negative Urine Bacteria Few Urine Casts Comment Urine Mucus Moderate Urine Other Rare Renal Ur Culture Indicated? No Urine Glucose 500 H COVID-19 Source SARS-CoV-2 (PCR) Influenza Type A (PCR) Influenza Type B (PCR) RSV (PCR) Last Vital Signs Temp 97.7 F 04/15/25 10:19 Pulse 109 H 04/15/25 13:20 Resp 18 04/15/25 13:20 BP 113/69 04/15/25 13:16 Pulse Ox 98 04/15/25 13:20 Time Spent Time spent with Patient: >75 minutes Time was spent: preparing to see the patient(eg.review tests), obtaining and/or reviewing separately otained hiistory, ordering medications,tests, procedures, referring, communicating with other health customer care team coach, indepentently interpreting results, counseling the patient and care coordination
[2025-04-15 14:49] LABS: Troponin I 24 ng/L (<or=76)
--- NOTE | 2025-04-15 14:59 | W.PC.ACHO ---
Registration Status: REG ER Primary Language: Preferred Language: Mongolian ED Information & Data Chief Complaint Nausea/Vomit/Diar 04/15/25 10:30 Triage Note nausea and vomiting past 04/15/25 09:31 couple of days. vomits every hour. denies diarrhea. denies fever. Most Recent Vital Signs Temperature 36.5 C 04/15/25 10:19 Temperature Source Tympanic 04/15/25 10:19 Pulse 130 H 04/15/25 14:40 Pulse 128 H 04/15/25 14:40 Respiratory Rate 16 04/15/25 14:40 Blood Pressure 134/75 04/15/25 14:16 Blood Pressure Mean 90 04/15/25 14:16 Pulse Oximetry 99 04/15/25 14:40 Oxygen Delivery Method Room Air 04/15/25 10:19 Oxygen Flow Rate 0 04/15/25 10:19 Pain Level 8 04/15/25 10:19 Comment chronic back pain 04/15/25 10:19 Allergies codeine Allergy (Mild, Unverified 04/15/25 09:36) Rash empagliflozin (From Jardiance) Allergy (Mild, Verified 04/15/25 09:36) Skin Rash Precautions Isolation Standard precaution 04/15/25 10:20 Active Medications Generic Name Dose Route Start Last Admin Trade Name Jesuq PRN Reason Stop Dose Admin Insulin Human Regular 100 unit in 100 mls @ 7.484 mls/hr 04/15/25 11:30 04/15/25 14:16 Myxredlin IVINF 0.06 unit/kg/hr INFUSION BRADLY 4.74 mls/hr Protocol Titration 0.1 UNIT/KG/HR Sodium Chloride 1,000 mls @ 250 mls/hr 04/15/25 13:06 04/15/25 13:23 Saline 1000ml Bag IV 04/15/25 17:05 250 mls/hr INFUSION STA Administration IV IV Catheter Type [Left Upper Saline Lock arm] IV Catheter Type [Left Saline Lock Antecubital] IV Catheter Type [Right Saline Lock Antecubital] IV Catheter Gauge [Left Upper 20 arm] IV Catheter Gauge [Left 18 Antecubital] IV Catheter Gauge [Right 18 Antecubital] Diagnostics 04/15/25 04/15/25 04/15/25 Range/Units 13:55 13:10 11:54 WBC (4.4-10.8) 10^3/uL RBC (4.36-5.78) 10^6/uL Hgb (13.5-17.5) g/dL Hct (40.0-50.0) % MCV (80-95) fL MCH (27.0-33.0) pg MCHC (32.0-36.0) % RDW (11.8-14.1) % Plt Count (130-400) 10^3/uL MPV (8.0-11.0) fL Immature Gran % % Neutrophils % % Lymphocytes % % Monocytes % % Eosinophils % % Basophils % % Nucleated RBC % (0.0-0.3) % Absolute Neutrophils (1.2-6.7) 10^3/uL Absolute Lymphocytes (1.2-3.4) 10^3/uL Absolute Monocytes (0.1-0.8) 10^3/uL Absolute Eosinophils (0.0-0.7) 10^3/uL Absolute Basophils (0.0-0.2) 10^3/uL VBG pH 7.22 L (7.31-7.41) VBG pCO2 42 (41-51) mmHg VBG pO2 36 mmHg VBG HCO3 17 L (23-28) mmol/L VBG Total CO2 16 L (24-29) mmol/L VBG O2 Saturation 63 % VBG Base Excess -10 L (-2-3) mmol/L VBG Lactate 3.7 H* (<or=2.0) mmol/L Sodium 141 (136-145) mmol/L Potassium 5.2 H (3.5-5.1) mmol/L Chloride 98 (98-107) mmol/L Carbon Dioxide 19.4 L (21.0-32.0) mmol/L Anion Gap 23.6 H (3-11) mmol/L BUN 39 H (7-18) mg/dL Creatinine 2.5 H (0.70-1.30) mg/dL Est GFR (CKD-EPI 2020) 29.05 (mL/min/1.73m2) Glucose 423 H (74-106) mg/dL Calcium 9.8 (8.5-10.1) mg/dL Magnesium (1.8-2.4) mg/dL Total Bilirubin (0.2-1.0) mg/dL AST (15-37) U/L ALT (16-63) U/L Alkaline Phosphatase (46-116) U/L Troponin I 24 (<or=76) ng/L Total Protein (6.4-8.2) g/dL Albumin (3.4-5.0) g/dL Lipase (<78) U/L Urine Color Yellow (Yellow) Urine Clarity Clear (Clear) Urine pH 5.5 (5-8) Ur Specific [place] 1.015 (1.005-1.025) Urine Protein 30 H (Neg-Trace) mg/dL Urine Ketones >=160 H (Negative) mg/dL Urine Blood Trace-intact H (Negative) Urine Nitrite Negative (Negative) Urine Bilirubin Moderate H (Negative) Urine Urobilinogen 0.2 (Up to 0.2) mg/dL Ur Leukocyte Esterase Negative (Negative) Urine RBC Negative (0-2) HPF Urine WBC 0-2 (0-5) HPF Ur Epithelial Cells Few (Negative) HPF Urine Crystals Negative (Negative) HPF Urine Bacteria Few (Negative) HPF Urine Casts Comment (Negative) LPF Urine Mucus Moderate (Negative) Urine Other Rare Renal (Negative) Ur Culture Indicated? No Urine Glucose 500 H (Negative) mg/dL COVID-19 Source SARS-CoV-2 (PCR) (Negative) Influenza Type A (PCR) (Negative) Influenza Type B (PCR) (Negative) RSV (PCR) (Negative) 04/15/25 04/15/25 04/15/25 Range/Units 11:07 10:38 09:55 WBC 10.43 (4.4-10.8) 10^3/uL RBC 5.28 (4.36-5.78) 10^6/uL Hgb 17.5 (13.5-17.5) g/dL Hct 52.9 H (40.0-50.0) % MCV 100 H (80-95) fL MCH 33.1 H (27.0-33.0) pg MCHC 33.1 (32.0-36.0) % RDW 13.2 (11.8-14.1) % Plt Count 247 (130-400) 10^3/uL MPV 10.8 (8.0-11.0) fL Immature Gran % 0.6 % Neutrophils % 80.0 % Lymphocytes % 13.1 % Monocytes % 5.8 % Eosinophils % 0.0 % Basophils % 0.5 % Nucleated RBC % 0.0 (0.0-0.3) % Absolute Neutrophils 8.35 H (1.2-6.7) 10^3/uL Absolute Lymphocytes 1.37 (1.2-3.4) 10^3/uL Absolute Monocytes 0.60 (0.1-0.8) 10^3/uL Absolute Eosinophils 0.00 (0.0-0.7) 10^3/uL Absolute Basophils 0.05 (0.0-0.2) 10^3/uL VBG pH 7.17 L* 7.20 L (7.31-7.41) VBG pCO2 36 L 34 L (41-51) mmHg VBG pO2 40 36 mmHg VBG HCO3 13 L 13 L (23-28) mmol/L VBG Total CO2 12 L 12 L (24-29) mmol/L VBG O2 Saturation 68 64 % VBG Base Excess -15 L -15 L (-2-3) mmol/L VBG Lactate 3.2 H* (<or=2.0) mmol/L Sodium 134 L 133 L (136-145) mmol/L Potassium 6.1 H* 6.1 H* (3.5-5.1) mmol/L Chloride 91 L 88 L (98-107) mmol/L Carbon Dioxide 15.2 L 15.4 L (21.0-32.0) mmol/L Anion Gap 27.8 H 29.6 H (3-11) mmol/L BUN 41 H 42 H (7-18) mg/dL Creatinine 2.8 H 2.9 H (0.70-1.30) mg/dL Est GFR (CKD-EPI 2020) 25.36 24.31 (mL/min/1.73m2) Glucose 653 H* 661 H* (74-106) mg/dL Calcium 9.8 10.5 H (8.5-10.1) mg/dL Magnesium 2.2 (1.8-2.4) mg/dL Total Bilirubin 0.8 (0.2-1.0) mg/dL AST 10 L (15-37) U/L ALT 18 (16-63) U/L Alkaline Phosphatase 158 H (46-116) U/L Troponin I 21 25 (<or=76) ng/L Total Protein 9.8 H (6.4-8.2) g/dL Albumin 4.7 (3.4-5.0) g/dL Lipase 377 H (<78) U/L Urine Color (Yellow) Urine Clarity (Clear) Urine pH (5-8) Ur Specific [place] (1.005-1.025) Urine Protein (Neg-Trace) mg/dL Urine Ketones (Negative) mg/dL Urine Blood (Negative) Urine Nitrite (Negative) Urine Bilirubin (Negative) Urine Urobilinogen (Up to 0.2) mg/dL Ur Leukocyte Esterase (Negative) Urine RBC (0-2) HPF Urine WBC (0-5) HPF Ur Epithelial Cells (Negative) HPF Urine Crystals (Negative) HPF Urine Bacteria (Negative) HPF Urine Casts (Negative) LPF Urine Mucus (Negative) Urine Other (Negative) Ur Culture Indicated? Urine Glucose (Negative) mg/dL COVID-19 Source Nasopharynx SARS-CoV-2 (PCR) Negative (Negative) Influenza Type A (PCR) Negative (Negative) Influenza Type B (PCR) Negative (Negative) RSV (PCR) Negative (Negative) 04/15/25 10:07 Blood Culture - Pending Blood 04/15/25 09:55 Blood Culture - Pending Blood [id number] Documentation Fingerstick Glucose Start: 04/15/25 09:46 Freq: Status: Complete Protocol: Activity Type Activity Date Activity User E-sign Co-sign Detail Recorded Client Recorded Date Recorded By Document 04/15/25 09:45 BKG DAEMON(9) [id number] 04/15/25 09:46 BKG DAEMON(10) Fingerstick Glucose Start: 04/15/25 10:52 Freq: .Stat Status: Active Protocol: Activity Type Activity Date Activity User E-sign Co-sign Detail Recorded Client Recorded Date Recorded By Document 04/15/25 14:08 BKG DAEMON(10) NVT-BG05 04/15/25 14:09 BKG DAEMON(10) Intake and Output - 24 Hour Total 04/15/25 09:30 thru 04/15/25 14:56 Intake Total 4262.160 Output Total 560 Balance 3702.160 Weight 74.843 kg Intake: IV 2062.160 Other 2200 Output: Urine 560 Falls Risk Assessment Contributing Factors No Factors 04/15/25 09:36 Fall Total Score 0 04/15/25 09:36 Level of Risk Standard/Low Risk 04/15/25 09:36 Problems (Last Reviewed 04/09/25 @ 21:29 by Boo Tolbert) IGNACIA (acute kidney injury) (Acute) DKA (diabetic ketoacidosis) (Acute) Hyperlipidemia (Chronic) Depression (Chronic) Closed compression fracture of L1 vertebra (Acute) v v v v v v v v v Sending and/or Receiving Nurses: Please use comment section below to note any information pertinent to the patient hand-off not included above. Information / Comments: Report received from: Ernestine Estevez RN
[2025-04-15 16:28] LABS: Anion Gap 16.6 mmol/L (3-11); BUN 39 mg/dL (7-18); CO2 24.4 mmol/L (21.0-32.0); Calcium 9.7 mg/dL (8.5-10.1); Chloride 101 mmol/L (98-107); Estimated GFR 33.87 (mL/min/1.73m2); Glucose 258 mg/dL (74-106); Potassium 4.8 mmol/L (3.5-5.1); Sodium 142 mmol/L (136-145)
[2025-04-15] MEDS: DEXTROSE 5%-0.45% SALINE 1,000 ML 125 ML IV (17:50)
[2025-04-15 18:19] LABS: Anion Gap 13.2 mmol/L (3-11); BUN 36 mg/dL (7-18); CO2 23.8 mmol/L (21.0-32.0); Calcium 9.2 mg/dL (8.5-10.1); Chloride 103 mmol/L (98-107); Estimated GFR 40.38 (mL/min/1.73m2); Glucose 214 mg/dL (74-106); Potassium 4.1 mmol/L (3.5-5.1); Sodium 140 mmol/L (136-145)
[2025-04-15 20:06] LABS: Anion Gap 10.5 mmol/L (3-11); BUN 34 mg/dL (7-18); CO2 26.5 mmol/L (21.0-32.0); Calcium 9.1 mg/dL (8.5-10.1); Chloride 104 mmol/L (98-107); Estimated GFR 46.15 (mL/min/1.73m2); Glucose 221 mg/dL (74-106); Potassium 3.8 mmol/L (3.5-5.1); Sodium 141 mmol/L (136-145)
[2025-04-15 21:45] LABS: BE (Venous) 2 mmol/L (-2-3); HCO3 (Venous) 26 mmol/L (23-28); O2 Sat (Venous) 83 %; TCO2 (Venous) 23 mmol/L (24-29); pCO2 (Venous) 41 mmHg (41-51); pO2 (Venous) 43 mmHg
[2025-04-15 22:03] LABS: Anion Gap 8.9 mmol/L (3-11); BUN 30 mg/dL (7-18); CO2 28.1 mmol/L (21.0-32.0); Calcium 9.0 mg/dL (8.5-10.1); Chloride 103 mmol/L (98-107); Estimated GFR 46.15 (mL/min/1.73m2); Glucose 170 mg/dL (74-106); Potassium 3.4 mmol/L (3.5-5.1); Sodium 140 mmol/L (136-145)
[2025-04-15] MEDS: Insulin Glargine 300 UNITS/3 ML PEN 15 UNITS SC (23:23)
[2025-04-15] MEDS: Normal Saline Flush 10 ML SYR IVP (23:25)
[2025-04-15] MEDS: POTASSIUM CHLORIDE/0.9% NACL 1,000 ML 125 MEQ IV (23:26)
[2025-04-16] VITALS (19 sets, daily range): BP systolic 92–141; BP diastolic 54–70; PULSE 73–108; RESP 14–26; TEMP 36.4–37; O2SAT 94–96
[2025-04-16 00:05] LABS: Anion Gap 8.9 mmol/L (3-11); BUN 26 mg/dL (7-18); CO2 27.1 mmol/L (21.0-32.0); Calcium 8.7 mg/dL (8.5-10.1); Chloride 103 mmol/L (98-107); Estimated GFR 58.26 (mL/min/1.73m2); Glucose 187 mg/dL (74-106); Potassium 3.5 mmol/L (3.5-5.1); Sodium 139 mmol/L (136-145)
[2025-04-16 06:38] LABS: HCT 38.5 % (40.0-50.0); HGB 13.3 g/dL (13.5-17.5); MCH 33.7 pg (27.0-33.0); MCHC 34.5 % (32.0-36.0); MCV 98 fL (80-95); MPV 10.5 fL (8.0-11.0); Platelet Count 173 10^3/uL (130-400); RBC 3.95 10^6/uL (4.36-5.78); RDW 13.3 % (11.8-14.1); RDW-SD 48.0 fL; WBC 9.08 10^3/uL (4.4-10.8)
[2025-04-16] MEDS: POTASSIUM CHLORIDE/0.9% NACL 1,000 ML 125 MEQ IV (07:07)
[2025-04-16 07:09] LABS: Anion Gap 7.0 mmol/L (3-11); BUN 24 mg/dL (7-18); CO2 28.0 mmol/L (21.0-32.0); Calcium 8.7 mg/dL (8.5-10.1); Chloride 106 mmol/L (98-107); Estimated GFR 70.10 (mL/min/1.73m2); Glucose 92 mg/dL (74-106); Magnesium 1.7 mg/dL (1.8-2.4); Potassium 3.3 mmol/L (3.5-5.1); Sodium 141 mmol/L (136-145)
[2025-04-16] MEDS: Sertraline 100 MG TAB PO (07:49)
[2025-04-16] MEDS: Nicotine 21 MG/24 HR PATCH TD (07:49)
[2025-04-16] MEDS: Omeprazole 20 MG CAPCR PO (07:49)
[2025-04-16] MEDS: Enoxaparin 40 MG/0.4 ML SYR SC (07:49)
--- NOTE | 2025-04-16 08:43 | PDOC.CMIN ---
Date of service: 04/16/25 Time of Service: 08:43 Care Management Initial Assmt Initial Assessment Reason for Hospitalization: DKA Functional Status/Living Situation Patient Presentation: Chaz was sitting up in bed and accompalnied by his fiance Bianca. He sustained a Closed compression fracture and discharged from [facility] on 04/12/25. He was readmitted a few days later with DKA. Per pt, he feels he developed DKA after discharge because he was not given long acting insulin during his last admission. Town of Residence: [place] Resides with: Other (Female carpenter ship: Bianca) Significant Other/Family: Out of area (Children in [place]) Natural Supports: Family Employment Status: Retired Instrumental Activities of Daily Living (ADLs): Independent Medications Medication Management: No Issues/Barriers identified Physical Functioning/Mobility Assistive Device: None Advance Directives Advance Directives: Do you have an Advance Directive: N 03/17/13, 17:16 AD On File at [facility]: N 11/26/12, 13:55 Date Asked 04/15/25 04/15/25, 09:31 AD Date Reviewed COLST On File at [facility] No 04/09/25, 18:22 COLST Date Scanned Code Status Resuscitation Status Full Code Portal Pt does not currently have a portal and education provided: Yes Insurance Coverage/Financial Issues [place]: [place] - [id number] Care Team Visit Care Team Role Provider Type Unknown Unknown Primary Care Provider STAFF PHYSICIAN SAMUEL Mata Emergency Provider [employer] EDUCATION INSTRUCTOR Ashwin Capellan MD Admit Provider [facility] STAFF PHYSICIAN Attending Provider Discharge Potential Discharge Needs: PCP F/U Appt Anticipated Barriers to Discharge: None Identified Patient/Family Education Needs: Review discharge instructions, discuss Ask Me Three Transportation: Private vehicle Plan: Anticipate, Chaz will discharge home via private vehicle with Sandra?. Follow up with community/[facility] providers and discharge plan of care and outpatient PT as directed. No new services are anticipated at this time. Social Determinants of Health Screening Social Determinants of health last assessed in clinic: 04/16/25 Will the Patient Participate in the Screening?: Yes Do you worry about having a steady place to live?: no Problems where you live: no known problems In the past 12 months, have you had to go without electric, gas, oil or water in your home?: no 1. Within the past 12 months, we worried whether our food would run out before we got money to buy more.: Never true 2. Within the past 12 months, the food we bought just didn't last and we didn't have money to get more.: Never true Has lack of transportation kept you from medical appointments or from doing things needed for daily living?: no Has anyone in your life made you feel unsafe or unsupported?: no How hard is it for you to pay for the very basics like food, housing, medical care, and heating? Would you say it is:: Not hard at all Do you want help finding or keeping work or a job?: I do not need or want help If for any reason you need help with day-to-day activities such as bathing, preparing meals, shopping, managing finances, etc., do you get the help you need?: I don?t need any help How often do you feel lonely or isolated from those around you?: Never Do you speak a language other than Bahraini at home?: No Does the patient want assistance with any of the above?: No PFSH All Active Problems (Updated 04/15/25 @ 14:15 by SAMUEL Mata) Acute hyperkalemia (Acute) IGNACIA (acute kidney injury) (Acute) DKA (diabetic ketoacidosis) (Acute) Hyperlipidemia (Chronic) Depression (Chronic) GERD (gastroesophageal reflux disease) (Chronic) Type 2 diabetes mellitus (Chronic) Closed compression fracture of L1 vertebra (Acute) Spondylosis of lumbar region without myelopathy or radiculopathy (Chronic) Social History Smoking/Tobacco Use Status: Current every day Smoking risk assessment performed?: Yes Alcohol Intake: never Drug use: Never Substance use type: does not use Housing: house Do you feel safe at home: Yes Do you feel safe in your relationship?: Yes Readmission Within the Past 30 Days Yes or No: Yes Date of First Admission Date of 1st Admission: 04/09/25 Date of this Admission Date of Admission: 04/15/25 This admission was: Through ED Office Visit Since 1st Admission Have you seen your PCP in the office since discharge?: No Had an appointment Been Scheduled?: No Describe barriers for scheduling or getting an appointment: [facility]Primary Care Provider, Medicine] [facility] Note: [facility] an [facility]. I. Interview patient and/or Family Difficulty reaching your doctor or getting an office appt?: No Have you had trouble purchasing/ or taking medication?: No How do you think you became sick enough to come back?: Per pt, he feels he developed DKA after discharge because he was not given long acting insulin during his last admission.
[2025-04-16] MEDS: Insulin Aspart 300 UNITS/3 ML PEN SC (11:26)
--- NOTE | 2025-04-16 13:48 | W.PM.DS.N ---
Date of service: 04/16/25 Time of Service: 13:48 DS: Diagnosis Discharge Diagnosis (1) DKA (diabetic ketoacidosis): Status: Acute (2) IGNACIA (acute kidney injury): Status: Acute (3) Closed compression fracture of L1 vertebra: Status: Acute (4) Hyperlipidemia: Status: Chronic (5) Depression: Status: Chronic Discharge Plan Disposition Patient Disposition: Home Condition: Good Discharge Details Reason For Visit: DKA Admit Date/Time: 04/15/25 14:05 Admit Provider: Ashwin Capellan Attending Provider: Ashwin Capellan Primary Care Provider: Unknown,Unknown Hospital Course Hospital Course: Patient initially presented with nausea and vomiting was found to be in DKA as he was acidotic, had elevated blood glucose levels, ketones in his urine, and had an anion gap of almost 30. He was placed on DKA protocol and insulin drip and overnight had his anion gap closed. He was then restarted on subcutaneous insulin and was allowed to eat and had normal blood sugar levels. Ultimately, given that the patient had improvement in his anion gap, blood sugar levels, was able to tolerate a regular diet and ambulate without difficulty it was determined that he was stable for discharge home. Home Meds and New Rx's Prescriptions: Continued insulin glargine [Lantus Solostar U-100 Insulin] 100 UNIT/1 ML insulin pen 35 unit SQ HS Rx Instructions: Dx: DM, uncontrolled For goal A1C less than 8% sertraline [Zoloft] 100 MG tablet 100 mg PO DAILY nicotine [Nicoderm CQ] 1 EACH patch 24 hour 21 mg Transdermal DAILY omeprazole 20 MG capsule,delayed release(DR/EC) 20 mg PO DAILY albuterol sulfate [ProAir HFA] 8.5 GM HFA aerosol inhaler 1 puff Inhalation Q4H PRN Breztri Aerosphere 160-9-4.8 mcg/actuation HFA aerosol inhaler 2 inh inhalation QAM AND QPM acetaminophen 500 mg Tablet 1,000 mg PO Q6H PRN PRNQty: 0 0RF ibuprofen 600 mg tablet 600 mg PO Q6H PRNQty: 60 0RF hydromorphone 2 mg tablet 2 mg PO Q6H PRN Patient Comments: TAKE 1 TABLET BY MOUTH EVERY 6 HOURS NEEDED FOR SEVERE BREAKTHROUGH PAIN Discharge Instructions Activity:: Activity as Tolerated Equipment/Supplies:: No Equipment Needed Diet:: As Tolerated Discharge Orders Discharge Orders: Discharge Order (Routine); Ordered 04/16/25 Ordered By: Ashwin Capellan Discharge Data Discharge Date/Time-TO BE ENTERED AT DEPARTURE: 04/16/25 14:15 Discharge Comment: [facility] will [facility] for follow up DS: Summary Time Spent with Patient providing and/or coordinating discharge services: Greater than 30 minutes Status at Discharge Functional status at discharge: independent ambulation Overall status at discharge: patient is back to baseline Mental Status: mental status grossly normal Speech and Movement: speech and movement normal Mood: congruent mood Affect: normal affect Exam Narrative Exam Narrative: Fatigued appearing gentleman laying in bed in no acute distress, ANO x 4, heart regular rhythm, lungs good auscultation bilaterally, abdomen soft, nontender, nondistended Psych Mental Status: mental status grossly normal Speech and Movement: speech and movement normal Mood: congruent mood Affect: normal affect DS: Data Vitals/I&O Vitals and I&O: Vital Signs Temperature 98.6 F 04/16/25 11:20 Temperature Source Temporal Artery Scan 04/16/25 06:54 Pulse 79 04/16/25 11:20 Pulse 80 04/16/25 11:20 Respiratory Rate 24 04/16/25 11:20 Respiratory Effort Normal, Non-Labored 04/15/25 16:01 Respiratory Depth Shallow 04/15/25 16:01 Respiratory Pattern Normal 04/15/25 16:01 Blood Pressure 141/70 H 04/16/25 11:20 Blood Pressure Mean 91 04/16/25 11:20 Blood Pressure Position Sitting 04/15/25 16:01 Pulse Oximetry 96 04/16/25 11:20 Oxygen Delivery Method Room Air 04/15/25 16:01 Oxygen Flow Rate 0 04/15/25 16:01 Pain Level 8 04/15/25 16:01 Comment chronic back pain 04/15/25 10:19 Intake & Output 04/15/25 04/16/25 04/16/25 17:59 05:59 17:59 Intake Total 5987.013 / 5987.013 1462.405 / 7449.418 1700 / 1700 Output Total 710 / 710 475 / 1185 300 / 300 Balance 5277.013 / 5277.013 987.405 / 6264.418 1400 / 1400 Weight 150 lb 12.739 oz 158 lb 8.198 oz Intake: IV 3087.013 / 3087.013 1012.405 / 4099.418 1000 / 1000 Oral 700 / 700 450 / 1150 700 / 700 Other 2200 / 2200 Output: Urine 710 / 710 475 / 1185 300 / 300 Other: Urine Color Yellow Yellow Urine Appearance Clear Clear Urine Odor Strong Normal Data Completed and Pending Labs on day of discharge: Labs from last 24 hours 04/16/25 04/15/25 04/15/25 05:33 23:47 21:40 WBC 9.08 RBC 3.95 L Hgb 13.3 L D Hct 38.5 L MCV 98 H MCH 33.7 H MCHC 34.5 RDW 13.3 Plt Count 173 MPV 10.5 VBG pH 7.42 H VBG pCO2 41 VBG pO2 43 VBG HCO3 26 VBG Total CO2 23 L VBG O2 Saturation 83 VBG Base Excess 2 VBG Lactate 1.8 Sodium 141 139 140 Potassium 3.3 L 3.5 3.4 L Chloride 106 103 103 Carbon Dioxide 28.0 27.1 28.1 Anion Gap 7.0 8.9 8.9 BUN 24 H 26 H 30 H Creatinine 1.2 1.4 H 1.7 H Est GFR (CKD-EPI 2020) 70.10 58.26 46.15 Glucose 92 187 H 170 H Calcium 8.7 8.7 9.0 Magnesium 1.7 L Troponin I 04/15/25 04/15/25 04/15/25 19:43 17:55 16:10 WBC RBC Hgb Hct MCV MCH MCHC RDW Plt Count MPV VBG pH VBG pCO2 VBG pO2 VBG HCO3 VBG Total CO2 VBG O2 Saturation VBG Base Excess VBG Lactate Sodium 141 140 142 Potassium 3.8 4.1 4.8 Chloride 104 103 101 Carbon Dioxide 26.5 23.8 24.4 Anion Gap 10.5 13.2 H 16.6 H BUN 34 H 36 H 39 H Creatinine 1.7 H 1.9 H 2.2 H Est GFR (CKD-EPI 2020) 46.15 40.38 33.87 Glucose 221 H 214 H 258 H Calcium 9.1 9.2 9.7 Magnesium Troponin I 04/15/25 13:55 WBC RBC Hgb Hct MCV MCH MCHC RDW Plt Count MPV VBG pH VBG pCO2 VBG pO2 VBG HCO3 VBG Total CO2 VBG O2 Saturation VBG Base Excess VBG Lactate Sodium Potassium Chloride Carbon Dioxide Anion Gap BUN Creatinine Est GFR (CKD-EPI 2020) Glucose Calcium Magnesium Troponin I 24 Preliminary micro results at discharge 04/15/25 10:07 Blood Blood Culture - Preliminary NO GROWTH 24 HOURS 04/15/25 09:55 Blood Blood Culture - Preliminary NO GROWTH 24 HOURS PFSH All Active Problems (Updated 04/15/25 @ 14:15 by SAMUEL Mata) Acute hyperkalemia (Acute) IGNACIA (acute kidney injury) (Acute) DKA (diabetic ketoacidosis) (Acute) Hyperlipidemia (Chronic) Depression (Chronic) GERD (gastroesophageal reflux disease) (Chronic) Type 2 diabetes mellitus (Chronic) Closed compression fracture of L1 vertebra (Acute) Spondylosis of lumbar region without myelopathy or radiculopathy (Chronic) Social History Smoking/Tobacco Use Status: Current every day Smoking risk assessment performed?: Yes Alcohol Intake: never Drug use: Never Substance use type: does not use Housing: house Do you feel safe at home: Yes Do you feel safe in your relationship?: Yes Time Spent with Patient Time Spent with Patient: <45 minutes Time was spent: preparing to see the patient(eg.review tests), obtaining and/or reviewing separately otained hiistory, ordering medications,tests, procedures, referring, communicating with other health post acute care nurse practitioner, indepentently interpreting results, counseling the patient and care coordination
--- NOTE | 2025-04-16 15:21 | PDOC.CMDIS ---
Date of service: 04/16/25 Time of Service: 15:21 LACE Index Scoring Tool Questions: Length of Stay (in days): 1 Was the patient admitted via the E.D.?: Yes Comorbidities: Diabetes w/o Complication, with End Organ Damage and Mild Liver/Renal Disease E.D. Visits: 2 Answers: Total Score: 11 Risk of Readmission: High Risk Care Management Discharge Plan Reason for Hospitalization: DKA Discharge Plan: Discharge home via private vehicle with Fianc?. Follow up with [facility] providers and the discharge plan of care. No new services are ordered before discharge. Patient/Family Education Needs: Review discharge instructions, limitations, and plan to follow up after discharge. Discuss ask me three.
== END 2025-04-16 14:15 | disposition home or self-care (01) | DRG 638 ==
LOC: ER 14:15 → ICU 15:17
PROVIDERS: Family Medicine; Admitting Provider Family Medicine; Emergency Provider Physician Assistant; Responsible Provider Family Medicine; Visit Provider Family Medicine
DX: E11.10 Type 2 diabetes mellitus with ketoacidosis without coma (principal); N17.9 Acute kidney failure, unspecified; E78.2 Mixed hyperlipidemia; F32.A Depression, unspecified; E87.5 Hyperkalemia; K21.9 Gastro-esophageal reflux disease without esophagitis; M47.816 Spondylosis without myelopathy or radiculopathy, lumbar region; Z79.4 Long term (current) use of insulin; Z79.899 Other long term (current) drug therapy; F17.210 Nicotine dependence, cigarettes, uncomplicated; E86.0 Dehydration; W10.9XXD Fall (on) (from) unspecified stairs and steps, subsequent encounter; S32.010D Wedge compression fracture of first lumbar vertebra, subsequent encounter for fracture with routine healing
CPT/HCPCS: 00123; 36415; 36416; 51798; 80048; 80053; 82805; 82962; 83690; 85027; 87040; 87637; 93005; 96365; 96366; 96367; 96375; 99291; J1650; 71046; 74176; 81003; 81015; 83605; 83735; 84484; 85025; 93010; 99223; 99239; J0612; J0696; J0780; J1815; J2469